=== PATIENT | male | born 1950 | race Caucasian/White ===

== ENCOUNTER 2017-08-25 13:05 | Inpatient (IN) | payer MEDICARE, OTHER ==
[~2017-08-25] VITALS: Ht 170.2 cm; Wt 65.5 kg
[~2017-08-25 13:05] MED LIST: ASPI-231 PO; ATOR1TAB PO; GLARGINE INSULIN SC; HYDR-1421 PO; METF-370 PO; NOVOLIN INSULIN SC
[2017-08-25] MEDS ORDERED: SODIUM CHLORIDE 0.9% 1,000 ML IV ONE ×2 (13:40→15:39)
[2017-08-25 13:45] LABS: Basophils # (auto) 0.1 uL; Basophils % (auto) 0.4 % (0.0-2.0); Eosinophils # (auto) 0 uL; Eosinophils % (auto) 0.1 % (0.0-7.0); Hematocrit 43.2 % (41.0-53.0); Hemoglobin 14.3 g/dL (13.5-17.5); Lymphocytes # (auto) 0.6 uL; Lymphocytes % (auto) 2.4 % (10.0-50.0); Mean Corpuscular Hemoglobin 28.5 pg (28.0-32.0); Mean Corpuscular Hgb Conc. 33.1 g/dL (32.0-36.0); Mean Corpuscular Volume 85.9 fL (80.0-100.0); Monocytes % (auto) 4.3 % (0.0-12.0); Neutrophils # (auto) 22.7 uL; Neutrophils % (auto) 92.8 % (37.0-80.0); Platelet Count (auto) 307 10^3/uL (140-450); Red Blood Cells 5.03 10^6/uL (4.5-5.90); Red Cell Distribution Width 14.4 % (11.8-14.3); White Blood Cell 24.5 10^3/uL (4.4-10.8)
[2017-08-25 15:09] LABS: Potassium 4.3 mmol/L (3.5-5.1); Sodium 134 mmol/L (136-145)
[2017-08-25 15:10] LABS: Anion Gap 25 (5-15); Blood Urea Nitrogen 47 mg/dL (7-18); Carbon Dioxide 29 mmol/L (21-32); Chloride 80 mmol/L (98-107)
[2017-08-25 15:11] LABS: Alanine Aminotransferase 76 U/L (16-61); Albumin 3.9 g/dL (3.4-5.0); Alkaline Phosphatase 124 U/L (45-117); Aspartate Aminotransferase 22 U/L (15-37); BUN/Creatinine Ratio 17.7; Bilirubin, Total 1.8 mg/dL (0.2-1.0); Calcium 10.7 mg/dL (8.5-10.1); GFR African American 31 mL/min; GFR Non-African American 25 mL/min; Magnesium 2.2 mg/dL (1.6-2.6); Total Protein 7.9 g/dL (6.4-8.2)
[2017-08-25 15:17] LABS: Glucose 662 mg/dL (74-106)
[2017-08-25 15:18] LABS: Urine Bacteria NONE SEEN /hpf (None Seen); Urine Blood Negative /uL (Negative); Urine Specific Gravity 1.024 (1.001-1.035); Urine WBC <1 /hpf (0 - 3)
[2017-08-25] MEDS ORDERED: InsuLIN REG 1unit/0.01ml Soln (100units/ml) IV ONE (15:45)
[2017-08-25] MEDS ORDERED: cefTRIAXone 1GM/10ml IVPUSH 10 ML IV ONE ×2 (15:45→16:30)
[2017-08-25] MEDS ORDERED: HYDROcodone-ACET 5/325MG TAB PO ONE (16:00)
[2017-08-25] MEDS ORDERED: DEXTROSE (50%) 50ML SYRG IV PRN (16:30)
[2017-08-25] MEDS ORDERED: MORPHINE SULFATE 4 MG/ML SYR/VIAL IV PRN (16:30)
[2017-08-25] MEDS ORDERED: NITROGLYCERIN 0.4 MG SL TAB SL PRN (16:30)
[2017-08-25] MEDS ORDERED: ENOXAPARIN SOD 30 MG/0.3 ML SYRINGE SC ONE (16:30)
[2017-08-25] MEDS ORDERED: MORPHINE SULF INJ 2 MG/ML SYRINGE 1ML IV PRN (16:30)
[2017-08-25] MEDS ORDERED: PROMETHAZINE HCL 25 MG/ML 1ML IV PRN (16:30)
[2017-08-25] MEDS ORDERED: LORazepam 0.5 MG TAB PO PRN (16:30)
[2017-08-25] MEDS ORDERED: TEMAZEPAM 15 MG CAP PO PRN (16:30)
[2017-08-25 16:49] LABS: Lactic Acid w/Reflex 2.5 mmol/L (0.4-2.0)
[2017-08-25] MEDS: SODIUM CHLORIDE 0.9% 1,000 ML IV SCH ×2 (17:01→23:18)
[2017-08-25] MEDS: metroNIDAZOLE 500MG/100ML 100 ML IV SCH ×2 (17:47→23:51)
[2017-08-25] MEDS: INSULIN DETEMIR(LEVEMIR) 1unit/0.01ml Soln (100units/ml) SC SCH (17:49)
[2017-08-25] MEDS: InsuLIN REG 1unit/0.01ml Soln (100units/ml) SC SCH ×2 (20:27→23:58)
[2017-08-25] MEDS: ACCU-CHEK COMFORT CURVE STRIP VI SCH ×2 (20:28→23:57)
[2017-08-25 22:45] VITALS: BP 109/64
[2017-08-25 23:19] VITALS: BP 109/64
[2017-08-26] VITALS (7 sets, daily range): BP systolic 124–148; BP diastolic 56–78
[2017-08-26] MEDS ORDERED: ZOLP10TA PO (03:21)
[2017-08-26] MEDS: InsuLIN REG 1unit/0.01ml Soln (100units/ml) SC SCH ×5 (04:00→19:59)
[2017-08-26] MEDS: ACCU-CHEK COMFORT CURVE STRIP VI SCH ×5 (04:19→19:59)
[2017-08-26] MEDS: metroNIDAZOLE 500MG/100ML 100 ML IV SCH ×3 (05:58→18:35)
[2017-08-26] MEDS: SODIUM CHLORIDE 0.9% 1,000 ML IV SCH ×3 (05:58→22:34)
[2017-08-26 06:27] LABS: Basophils # (auto) 0 uL; Eosinophils # (auto) 0 uL; Eosinophils % (auto) 0.1 % (0.0-7.0); Hemoglobin 11.6 g/dL (13.5-17.5); Lymphocytes # (auto) 1.1 uL; Lymphocytes % (auto) 4.6 % (10.0-50.0); Mean Corpuscular Hemoglobin 28.9 pg (28.0-32.0); Mean Corpuscular Hgb Conc. 34.1 g/dL (32.0-36.0); Mean Corpuscular Volume 84.7 fL (80.0-100.0); Monocytes # (auto) 1.7 uL; Monocytes % (auto) 7.2 % (0.0-12.0); Neutrophils # (auto) 20.8 uL; Neutrophils % (auto) 88.1 % (37.0-80.0); Platelet Count (auto) 220 10^3/uL (140-450); Red Blood Cells 4.01 10^6/uL (4.5-5.90); White Blood Cell 23.7 10^3/uL (4.4-10.8)
[2017-08-26 06:52] LABS: Albumin 2.9 g/dL (3.4-5.0); BUN/Creatinine Ratio 21.4; Bilirubin, Total 0.9 mg/dL (0.2-1.0); Calcium 8.4 mg/dL (8.5-10.1); Potassium 3.1 mmol/L (3.5-5.1); Total Protein 5.8 g/dL (6.4-8.2)
[2017-08-26] MEDS: cefTRIAXone 1GM/10ml IVPUSH 10 ML IV SCH (08:45)
[2017-08-26] MEDS: MORPHINE SULF INJ 2 MG/ML SYRINGE 1ML IV PRN (11:37)
[2017-08-26] MEDS: ASPirin-EC 81 mg tab PO SCH (11:44)
[2017-08-26] MEDS: ENOXAPARIN SOD 30 MG/0.3 ML SYRINGE SC SCH (11:44)
[2017-08-26] MEDS: PANTOPRAZOLE 40 MG TAB PO SCH (11:44)
[2017-08-26] MEDS: POTASSIUM CHL 20MEQ/50ML 50 ML IV SCH ×2 (12:23→13:06)
[2017-08-26] MEDS: INSULIN DETEMIR(LEVEMIR) 1unit/0.01ml Soln (100units/ml) SC SCH (18:00)
[2017-08-27] MEDS: metroNIDAZOLE 500MG/100ML 100 ML IV SCH ×2 (00:14→05:55)
[2017-08-27] MEDS: ACCU-CHEK COMFORT CURVE STRIP VI SCH ×3 (00:18→08:00)
[2017-08-27] MEDS: InsuLIN REG 1unit/0.01ml Soln (100units/ml) SC SCH ×3 (04:00→08:00)
[2017-08-27 04:22] LABS: Urine WBC None Seen /hpf (0 - 3)
[2017-08-27 04:42] LABS: Sodium Urine 176 mmol/L (40-220)
[2017-08-27 04:53] LABS: Urine Amorphous Crystal FEW /hpf (None Seen); Urine Bacteria NONE SEEN /hpf (None Seen); Urine Blood Negative /uL (Negative); Urine Mucus FEW (None Seen); Urine Specific Gravity 1.019 (1.001-1.035)
[2017-08-27 04:54] LABS: Creatinine, Urine 104 mg/dL (30.0-125.0)
[2017-08-27 05:38] LABS: Basophils # (auto) 0 uL; Basophils % (auto) 0.3 % (0.0-2.0); Eosinophils # (auto) 0.1 uL; Hematocrit 34.6 % (41.0-53.0); Hemoglobin 11.6 g/dL (13.5-17.5); Lymphocytes % (auto) 7.1 % (10.0-50.0); Mean Corpuscular Hemoglobin 28.7 pg (28.0-32.0); Mean Corpuscular Hgb Conc. 33.5 g/dL (32.0-36.0); Mean Corpuscular Volume 85.6 fL (80.0-100.0); Monocytes # (auto) 1.2 uL; Monocytes % (auto) 8.6 % (0.0-12.0); Neutrophils # (auto) 11.5 uL; Platelet Count (auto) 178 10^3/uL (140-450); Red Blood Cells 4.04 10^6/uL (4.5-5.90); Red Cell Distribution Width 14.3 % (11.8-14.3); White Blood Cell 13.8 10^3/uL (4.4-10.8)
[2017-08-27 05:40] VITALS: BP 130/65
[2017-08-27 06:21] LABS: BUN/Creatinine Ratio 18.3; Calcium 7.3 mg/dL (8.5-10.1); Phosphorus 1.1 mg/dL (2.5-4.90); Potassium 3.4 mmol/L (3.5-5.1); Uric Acid 4.4 mg/dL (3.5-7.2)
[2017-08-27] MEDS: MORPHINE SULF INJ 2 MG/ML SYRINGE 1ML IV PRN (07:51)
[2017-08-27 08:00] VITALS: BP 136/72
[2017-08-27 09:04] VITALS: BP 159/79
[2017-08-27] MEDS: cefTRIAXone 1GM/10ml IVPUSH 10 ML IV SCH (10:28)
[2017-08-27] MEDS: ENOXAPARIN SOD 30 MG/0.3 ML SYRINGE SC SCH (10:28)
[2017-08-27] MEDS: ASPirin-EC 81 mg tab PO SCH (10:28)
[2017-08-27] MEDS: SODIUM CHLORIDE 0.9% 1,000 ML IV SCH (10:28)
[2017-08-27] MEDS: PANTOPRAZOLE 40 MG TAB PO SCH (10:28)
[2017-08-27 13:00] VITALS: BP 177/93
[2017-08-27 14:57] VITALS: BP 159/79
== END 2017-08-27 15:45 | disposition home or self-care (01) | DRG 682 ==
LOC: ER 13:05 → EDBD 13:05 → TELE 13:06 → TELE-WESTW 22:25 → WEST WING 08-27 08:46
PROVIDERS: ADMIT Internal Medicine; ATTEND Internal Medicine
DX: N17.0 Acute kidney failure with tubular necrosis (principal); E11.00 Type 2 diabetes mellitus with hyperosmolarity without nonketotic hyperglycemic-hyperosmolar coma (NKHHC); G92 Toxic encephalopathy; E87.0 Hyperosmolality and hypernatremia; E11.42 Type 2 diabetes mellitus with diabetic polyneuropathy; E11.21 Type 2 diabetes mellitus with diabetic nephropathy; E11.65 Type 2 diabetes mellitus with hyperglycemia; I10 Essential (primary) hypertension; D72.828 Other elevated white blood cell count; E78.5 Hyperlipidemia, unspecified; E86.0 Dehydration; F41.9 Anxiety disorder, unspecified; F32.9 Major depressive disorder, single episode, unspecified; M54.9 Dorsalgia, unspecified; I25.9 Chronic ischemic heart disease, unspecified; G47.00 Insomnia, unspecified; K80.20 Calculus of gallbladder without cholecystitis without obstruction; G89.29 Other chronic pain; Z79.4 Long term (current) use of insulin; Z79.82 Long term (current) use of aspirin
CPT/HCPCS: 36415; 71045; 74176; 76775; 80048; 80053; 80061; 81001; 82150; 82570; 82962; 83036; 83605; 83690; 83735; 84100; 84300; 84443; 84484; 84550; 85025; 85652; 87040; 87086; 93005; 94761; 96361; 96372; 96374; 96375; J1815; J3490

== ENCOUNTER 2020-03-05 10:23 | Inpatient (IN) | payer MEDICARE, OTHER ==
[~2020-03-05] VITALS: Ht 167.6 cm; Wt 72.4 kg
[~2020-03-05 10:23] MED LIST changes: +ZOLP10TA PO
[2020-03-05 11:13] LABS: Basophils # (auto) 0.1 10 ^3/uL (0-0.2); Basophils % (auto) 0.7 % (0.0-2.0); Eosinophils # (auto) 0.2 10 ^3/uL (0-0.8)
[2020-03-05 11:15] LABS: Eosinophils % (auto) 2.2 % (0.0-7.0); Hematocrit 28.4 % (41.0-53.0); Mean Corpuscular Hemoglobin 25.3 pg (28.0-32.0); Mean Corpuscular Hgb Conc. 31.9 g/dL (32.0-36.0); Mean Corpuscular Volume 79.4 fL (80.0-100.0); Monocytes # (auto) 0.7 10 ^3/uL (0-1.3); Monocytes % (auto) 6.2 % (0.0-12.0); Neutrophils % (auto) 81.9 % (37.0-80.0); Platelet Count (auto) 415 10^3/uL (140-450); Red Blood Cells 3.58 10^6/uL (4.5-5.90); Red Cell Distribution Width 15.6 % (11.8-14.3)
[2020-03-05 11:41] LABS: Albumin 2.3 g/dL (3.4-5.0); Anion Gap 8 (5-15); Blood Urea Nitrogen 19 mg/dL (7-18); Calcium 8.6 mg/dL (8.5-10.1); Carbon Dioxide 24 mmol/L (21-32); Chloride 107 mmol/L (98-107); Glucose 229 mg/dL (74-106); Potassium 4.3 mmol/L (3.5-5.1); Sodium 139 mmol/L (136-145)
[2020-03-05] MEDS ORDERED: SODIUM CHLORIDE 0.9% 500 ML IV ONE (11:45)
[2020-03-05 11:46] LABS: Alanine Aminotransferase 16 U/L (16-61); Alkaline Phosphatase 162 U/L (45-117); Aspartate Aminotransferase 13 U/L (15-37); BUN/Creatinine Ratio 11.4; Bilirubin, Total 0.3 mg/dL (0.2-1.0); GFR African American 53 mL/min; GFR Non-African American 44 mL/min; Total Protein 7.5 g/dL (6.4-8.2)
[2020-03-05] MEDS ORDERED: KETOROLAC TROMETH 30 MG/ML 1ML VIAL IV ONE (14:15)
[2020-03-05] MEDS ORDERED: NITROGLYCERIN 0.4 MG SL TAB SL PRN (14:30)
[2020-03-05] MEDS ORDERED: MORPHINE SULF INJ 2 MG/ML SYRINGE 1ML IV PRN (14:30)
[2020-03-05] MEDS ORDERED: DEXTROSE (50%) 50ML SYRG IV PRN ×2 (14:45→16:45)
[2020-03-05] MEDS ORDERED: TEMAZEPAM 15 MG CAP PO PRN (14:45)
[2020-03-05] MEDS ORDERED: LACTULOSE 20Gm/30ML SOLN PO PRN ×2 (14:45→16:45)
[2020-03-05] MEDS ORDERED: ACETAMINOPHEN 500 MG TAB PO PRN (14:45)
[2020-03-05] MEDS ORDERED: LEVO100T8 PO (15:15)
[2020-03-05] MEDS ORDERED: OMEP-434 PO (15:21)
[2020-03-05] MEDS ORDERED: LISI40TA PO (15:28)
[2020-03-05] MEDS ORDERED: ALFU10TA10 PO (15:28)
[2020-03-05] MEDS ORDERED: INSLANTI SC (16:03)
[2020-03-05] MEDS ORDERED: INSU100I49 SC (16:03)
[2020-03-05 16:07] LABS: CRP High Sensitivity 5.75 mg/dL (< 0.3); Creatine Kinase IFCC 134 U/L (39-308)
[2020-03-05] MEDS ORDERED: InsuLIN REG 1unit/0.01ml Soln (100units/ml) SC SCH (17:00)
[2020-03-05] MEDS: ACCU-CHEK COMFORT CURVE STRIP VI SCH ×2 (17:00→22:00)
[2020-03-05] MEDS ORDERED: levoFLOXacin 500MG 100 ML IV ONE (17:00)
[2020-03-05] MEDS ORDERED: ACCU-CHEK COMFORT CURVE STRIP VI SCH (17:00)
[2020-03-05] MEDS: InsuLIN REG 1unit/0.01ml Soln (100units/ml) SC SCH ×2 (17:00→23:52)
[2020-03-05] MEDS: SODIUM CHLORIDE 0.9% 1,000 ML IV SCH (18:25)
[2020-03-05] MEDS ORDERED: LORazepam 2MG/ML-1ML VIAL IV PRN (20:30)
[2020-03-05] MEDS ORDERED: ATORVASTATIN 20 MG TAB PO SCH (22:00)
--- NOTE | 2020-03-05 22:00 | NUR ---
Telemetry admit from ER ROYADALJIT BENITEZ admitted to Telemetry unit after SBAR received. Patient oriented to Shy De Leon RN primary RN, unit, room, bed, and unit policies regarding patient care and visiting hours. Patient now on continuous telemetry monitoring, tele box # 35 and telemetry reading on arrival to unit is SR. Patient weighed by bedscale and encouraged to call if they need something. Instructed on POC, all questions and concerns addressed, patient verbalized understanding, will continue to monitor Note: []
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
[2020-03-05] MEDS: ATORVASTATIN 20 MG TAB PO SCH (23:31)
[2020-03-05] MEDS: CLINDAMYCIN 600MG IV 50 ML IV SCH (23:34)
[2020-03-05] MEDS: LABETALOL HCL 5 MG/ML ML 20ML VIAL IV PRN (23:41)
[2020-03-05] MEDS: HYDROcodone-ACET 5/325MG TAB PO PRN (23:42)
[2020-03-06] VITALS (7 sets, daily range): BP systolic 143–183; BP diastolic 73–97
[2020-03-06] MEDS: SODIUM CHLORIDE 0.9% 1,000 ML IV SCH ×2 (03:46→15:31)
[2020-03-06] MEDS: CLINDAMYCIN 600MG IV 50 ML IV SCH ×3 (06:25→21:22)
[2020-03-06] MEDS: ACCU-CHEK COMFORT CURVE STRIP VI SCH ×4 (06:25→21:28)
[2020-03-06] MEDS: InsuLIN REG 1unit/0.01ml Soln (100units/ml) SC SCH ×4 (06:26→21:28)
[2020-03-06 07:07] LABS: Urine WBC None Seen /hpf (0 - 3)
[2020-03-06 07:18] LABS: Basophils # (auto) 0 10 ^3/uL (0-0.2); Basophils % (auto) 0.5 % (0.0-2.0); Eosinophils # (auto) 0.3 10 ^3/uL (0-0.8); Eosinophils % (auto) 2.9 % (0.0-7.0); Hematocrit 26.5 % (41.0-53.0); Hemoglobin 8.6 g/dL (13.5-17.5); Lymphocytes # (auto) 1.3 10 ^3/uL (0.4-5.4); Lymphocytes % (auto) 13.1 % (10.0-50.0); Mean Corpuscular Hemoglobin 25.4 pg (28.0-32.0); Mean Corpuscular Hgb Conc. 32.3 g/dL (32.0-36.0); Mean Corpuscular Volume 78.7 fL (80.0-100.0); Monocytes # (auto) 0.6 10 ^3/uL (0-1.3); Monocytes % (auto) 5.8 % (0.0-12.0); Neutrophils # (auto) 7.7 10 ^3/uL (1.6-8.6); Neutrophils % (auto) 77.7 % (37.0-80.0); Platelet Count (auto) 425 10^3/uL (140-450); Red Blood Cells 3.37 10^6/uL (4.5-5.90); Red Cell Distribution Width 15.4 % (11.8-14.3); White Blood Cell 9.9 10^3/uL (4.4-10.8)
--- NOTE | 2020-03-06 07:30 | NUR ---
Opening Shift Note Assumed care of patient, awake and alert. No S/S of distress/SOB or pain. Instructed on POC and to call for assist PRN, will continue to monitor for changes Q1hr and PRN. Fall precautions in place per safety protocol.
[2020-03-06 07:35] LABS: Albumin 2.2 g/dL (3.4-5.0); BUN/Creatinine Ratio 15.2; Calcium 8.4 mg/dL (8.5-10.1)
[2020-03-06 07:37] LABS: Bilirubin, Total 0.3 mg/dL (0.2-1.0); Total Protein 7.2 g/dL (6.4-8.2)
[2020-03-06 07:55] LABS: Amphetamine Screen, Urine NEGATIVE (NEGATIVE); Barbiturate Scree,Urine NEGATIVE (NEGATIVE); Benzodiazephine Screen, Urine NEGATIVE (NEGATIVE); Cannabinoid Screen, Urine NEGATIVE (NEGATIVE); Cocaine Screen, Urine NEGATIVE (NEGATIVE); Opiate Scree,Urine NEGATIVE (NEGATIVE); Phencyclidine Screen, Urine NEGATIVE (NEGATIVE)
[2020-03-06 08:40] LABS: Urine Bacteria FEW /hpf (None Seen); Urine Blood Negative /uL (Negative); Urine Hyaline Cast FEW /lpf (0 - 2); Urine Specific Gravity 1.017 (1.001-1.035)
[2020-03-06] MEDS: levoFLOXacin 500MG 100 ML IV SCH (09:37)
[2020-03-06] MEDS: ASPirin 81 mg TAB PO SCH (09:37)
[2020-03-06] MEDS: PANTOPRAZOLE 40 MG TAB PO SCH (09:37)
[2020-03-06] MEDS: ENOXAPARIN SOD 40 MG/0.4 ML SYRINGE SC SCH (09:37)
[2020-03-06] MEDS: PROMETHAZINE HCL 25 MG/ML 1ML IV PRN ×2 (09:56→20:41)
[2020-03-06] MEDS: MORPHINE SULF INJ 2 MG/ML SYRINGE 1ML IV PRN ×2 (09:56→20:42)
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
--- NOTE | 2020-03-06 10:48 | NUR ---
Podiatry MD Fanous at bedside, aware of patient status. New orders for PICC line received, will obtain consents and cont to monitor patient.
[2020-03-06 13:36] LABS: INR 1.16 (0.9-1.15)
--- NOTE | 2020-03-06 14:00 | NUR ---
EEG COMPLETED AT BEDSIDE.
[2020-03-06] MEDS ORDERED: LIDOCAINE 1% (LOCAL ANESTH.) PF 5ml SDV ID ONE (16:15)
--- NOTE | 2020-03-06 16:16 | NUR ---
PICC line placement Patient educated on need for PICC line placement. All risks and benefits explained and all questions and concerns addressed prior to procedure. Noted past medical history and allergies with no contraindications. INR and Plt counts within acceptable range. 4 fr PICC line inserted via right basilic vein using [employer] US and Tip Location System. Sterile technique with maximum barrier precautions utilized. Blood return obtained from each of the 2 lumens and each flushed easily with NS using proper technique. PICC secured with Stat-lock; biodisc and occlusive dressing applied. Stat portable chest x-ray obtained for PICC tip placement. *Baseline Arm Circumference 30 cm. Internal length 39 cm. External length 0 cm. PICC lot #[id number]
[2020-03-06] MEDS: HYDROcodone-ACET 5/325MG TAB PO PRN (16:45)
--- NOTE | 2020-03-06 17:10 | NUR ---
Okay to use PICC line Xray completed. Okay to use PICC line. Bianka KAUR notified.
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
--- NOTE | 2020-03-06 19:15 | NUR ---
Opening Shift Note Received report from Bianka KAUR. Assumed care of patient, awake and alert. No S/S of distress/SOB or pain. Instructed on POC and to call for assist PRN, will continue to monitor for changes Q1hr and PRN.
--- NOTE | 2020-03-06 20:55 | NUR ---
pt. reports has no history of falls can ambulate with out the walker refused fall risk band. pt. states he has no allergies and he has no allergy to codeine refused allergy band. Signed: 03/06/20 at 2056 by KARMEN SOW <Co-Signature Required> Co-Signed: 03/06/202056 by Rosette Hernandez RN
[2020-03-06] MEDS: SODIUM CHLOR 0.9% PF (SALINE LOCK) 10ML VIAL/SYR IV SCH (21:20)
[2020-03-06] MEDS: ATORVASTATIN 20 MG TAB PO SCH (21:20)
[2020-03-06] MEDS: LABETALOL HCL 5 MG/ML ML 20ML VIAL IV PRN (21:27)
--- NOTE | 2020-03-06 21:40 | NUR ---
BS 274 administered ordered insulin per sliding scale. Signed: 03/06/20 at 2237 by KARMEN SOW SN <Co-Signature Required> Co-Signed: 03/06/20 at 2237 by Rosette Hernandez RN
--- NOTE | 2020-03-06 23:55 | NUR ---
Patient advised NPO after midnight for Cardiolite tomorrow.
[2020-03-07] MEDS: HYDROcodone-ACET 5/325MG TAB PO PRN ×2 (01:56→15:02)
[2020-03-07] MEDS: SODIUM CHLORIDE 0.9% 1,000 ML IV SCH ×2 (04:04→16:31)
[2020-03-07 05:16] VITALS: BP 159/100
[2020-03-07] MEDS: CLINDAMYCIN 600MG IV 50 ML IV SCH ×3 (06:24→21:49)
[2020-03-07] MEDS: MORPHINE SULF INJ 2 MG/ML SYRINGE 1ML IV PRN ×2 (06:25→21:50)
[2020-03-07] MEDS: PROMETHAZINE HCL 25 MG/ML 1ML IV PRN ×2 (06:25→12:38)
[2020-03-07] MEDS: ACCU-CHEK COMFORT CURVE STRIP VI SCH ×4 (06:25→22:03)
[2020-03-07] MEDS: InsuLIN REG 1unit/0.01ml Soln (100units/ml) SC SCH ×4 (06:26→22:05)
[2020-03-07] MEDS ORDERED: ADENOSINE 61 MG in GIVE UN-DILUTED 0 ML IV STA (08:21)
[2020-03-07 09:00] VITALS: BP 149/87
[2020-03-07] MEDS: SODIUM CHLOR 0.9% PF (SALINE LOCK) 10ML VIAL/SYR IV SCH ×2 (10:00→21:49)
--- NOTE | 2020-03-07 10:29 | NUR ---
Podiatry MD Lynch at bedside, aware of patient status. Per MD Lynch, there is no need for surgery at this time. However, he will input orders for home IV ABX . Will cont to monitor patient.
[2020-03-07] MEDS: PANTOPRAZOLE 40 MG TAB PO SCH (10:44)
[2020-03-07] MEDS: levoFLOXacin 500MG 100 ML IV SCH (10:44)
[2020-03-07] MEDS: ENOXAPARIN SOD 40 MG/0.4 ML SYRINGE SC SCH (10:44)
[2020-03-07] MEDS: ASPirin 81 mg TAB PO SCH (10:44)
--- NOTE | 2020-03-07 11:30 | NUR ---
Digital Media Associate Demetrice Vieira at bedside, aware of patient status. Per Trina, obtain orthostatic vitals at this time. Will carry out new orders and cont to monitor patient.
--- NOTE | 2020-03-07 11:42 | NUR ---
Orthostatic vitals Lying BP190/87 (127) HR82 Sitting BP139/76 (98) HR85 Standing BP122/71 (90) HR89
[2020-03-07 13:09] VITALS: BP 139/76
--- NOTE | 2020-03-07 14:00 | NUR ---
Wound care Performed wound care to the right foot. Patient Tolerated well. Administered available [place]. Will cont to monitor patient.
--- NOTE | 2020-03-07 14:05 | NUR ---
Nutrition Assessment Notes Please refer to link for full assessment notes. Est Energy needs: 3746-5387 kcals (30-35 kcal/kgBW) d/t pt with P/U Est Protein needs: 88-110 gms/day (1.2-1.5 gm/kgBW) d/t pt with P/U Will continue to monitor and reassess prn. Addendum: 03/07/20 at [address] Amended: Links added.
[2020-03-07 17:00] VITALS: BP 157/83
[2020-03-07] MEDS ORDERED: LORazepam 2MG/ML-1ML VIAL IV PRN (21:45)
[2020-03-07] MEDS: ATORVASTATIN 20 MG TAB PO SCH (21:50)
[2020-03-07] MEDS: levETIRAcetam 500 MG TAB PO SCH (21:57)
[2020-03-07 22:14] VITALS: BP 146/80
[2020-03-08 05:00] VITALS: BP 171/65
[2020-03-08] MEDS: SODIUM CHLORIDE 0.9% 1,000 ML IV SCH (05:55)
[2020-03-08] MEDS: CLINDAMYCIN 600MG IV 50 ML IV SCH (05:56)
[2020-03-08] MEDS: LABETALOL HCL 5 MG/ML ML 20ML VIAL IV PRN (05:57)
[2020-03-08] MEDS: InsuLIN REG 1unit/0.01ml Soln (100units/ml) SC SCH (06:36)
[2020-03-08] MEDS: ACCU-CHEK COMFORT CURVE STRIP VI SCH (06:36)
[2020-03-08 08:00] VITALS: BP 143/75
--- NOTE | 2020-03-08 08:00 | NUR ---
Opening Shift Note Assumed care of patient, awake and alert. No S/S of distress/SOB or pain. Instructed on POC and to call for assist PRN. Bed at lowest locked position and call light within reach. Will continue to monitor for changes Q1hr and PRN.
--- NOTE | 2020-03-08 08:40 | NUR ---
Dr. Quinton Haddad at bedside.
[2020-03-08 08:58] VITALS: BP 143/75
[2020-03-08] MEDS: SODIUM CHLOR 0.9% PF (SALINE LOCK) 10ML VIAL/SYR IV SCH (10:00)
[2020-03-08] MEDS: ASPirin 81 mg TAB PO SCH (10:00)
[2020-03-08] MEDS: ENOXAPARIN SOD 40 MG/0.4 ML SYRINGE SC SCH (11:09)
[2020-03-08] MEDS: PANTOPRAZOLE 40 MG TAB PO SCH (11:10)
[2020-03-08] MEDS: levETIRAcetam 500 MG TAB PO SCH (11:10)
[2020-03-08] MEDS: levoFLOXacin 500MG 100 ML IV SCH (11:10)
[2020-03-08 11:28] VITALS: BP 143/75
[2020-03-08 12:37] VITALS: BP 173/82
--- NOTE | 2020-03-08 12:55 | NUR ---
Blood Pressure re-assessment BP 118/70, HR 88. No s/s of distress/noted stated.
--- NOTE | 2020-03-08 13:00 | NUR ---
WOUND CARE/ WOUND PICTURES Patient refused wound care and pictures to be taken. Patient stated " I know how to do it myself and i have everything at home".
--- NOTE | 2020-03-08 13:30 | NUR ---
Discharge instructions given as ordered. Encourage to follow up with PMD as instructed. All questions and concerns addressed. Patient verbalized understanding. Medication reconciliation form completed and copy given to patient. IV removed with catheter intact, pressure dressing applied. Telemetry unit returned to ICU. Patient taken to vehicle via wheelchair with all personal belongings, accompanied by this nurse. No distress noted at time of departure.
== END 2020-03-08 13:40 | disposition home or self-care (01) | DRG 69 ==
LOC: ER 10:23 → EDBD 10:23 → TELE 10:24 → TELE-CENTR 21:24
PROVIDERS: ADMIT Internal Medicine; ATTEND Family Medicine
PROC: 02HV33Z Insertion of Infusion Device into Superior Vena Cava, Percutaneous Approach (ICD-10-PCS; principal; 2020-03-06)
DX: G45.9 Transient cerebral ischemic attack, unspecified (principal); N17.9 Acute kidney failure, unspecified; R55 Syncope and collapse; G40.409 Other generalized epilepsy and epileptic syndromes, not intractable, without status epilepticus; E03.9 Hypothyroidism, unspecified; D64.9 Anemia, unspecified; E11.42 Type 2 diabetes mellitus with diabetic polyneuropathy; E11.65 Type 2 diabetes mellitus with hyperglycemia; E78.5 Hyperlipidemia, unspecified; F17.210 Nicotine dependence, cigarettes, uncomplicated; F41.9 Anxiety disorder, unspecified; G89.29 Other chronic pain; I10 Essential (primary) hypertension; I48.91 Unspecified atrial fibrillation; N40.0 Benign prostatic hyperplasia without lower urinary tract symptoms; M54.9 Dorsalgia, unspecified; G40.A09 Absence epileptic syndrome, not intractable, without status epilepticus; S00.81XA Abrasion of other part of head, initial encounter; X58.XXXA Exposure to other specified factors, initial encounter; Z79.4 Long term (current) use of insulin; Z79.82 Long term (current) use of aspirin; Z79.891 Long term (current) use of opiate analgesic; Z79.899 Other long term (current) drug therapy; Z89.411 Acquired absence of right great toe; Z83.3 Family history of diabetes mellitus; Z89.429 Acquired absence of other toe(s), unspecified side; Y93.89 Activity, other specified; Y92.89 Other specified places as the place of occurrence of the external cause; Y99.8 Other external cause status
CPT/HCPCS: 36415; 36569; 36600; 70450; 70551; 71045; 71275; 73630; 78315; 78452; 80053; 80307; 81001; 82550; 82805; 82962; 83036; 83735; 84443; 84484; 85025; 85379; 85610; 85652; 86141; 87077; 87081; 87186; 87205; 93005; 93017; 93306; 93886; 93970; 95819; 96361; 96365; 96372; 96375; G0378; J0153; J1815; J1885; J1956; J3490

== ENCOUNTER 2020-10-20 06:04 | Inpatient (IN) | payer OTHER, MEDICARE ==
[~2020-10-20] VITALS: Ht 170.2 cm; Wt 64.5 kg
[~2020-10-20 06:04] MED LIST changes: +ALFU10TA10 PO; -ASPI-231 PO; +ASPI1TAB20 PO; +ATOR-47 PO; -ATOR1TAB PO; -GLARGINE INSULIN SC; +INSLANTI SC; +INSU100I49 SC; +LEVO100T8 PO; +LISI40TA11 PO; -METF-370 PO; -NOVOLIN INSULIN SC; +OMEP-434 PO
[2020-10-20] MEDS ORDERED: InsuLIN REG 1unit/0.01ml Soln (100units/ml) IV ONE (07:00)
[2020-10-20] MEDS ORDERED: SODIUM CHLORIDE 0.9% 500 ML IV ONE ×2 (07:00→07:30)
[2020-10-20 07:09] LABS: Hematocrit 36.5 % (41.0-53.0); Mean Corpuscular Hemoglobin 27.2 pg (28.0-32.0); Mean Corpuscular Hgb Conc. 32.9 g/dL (32.0-36.0); Mean Corpuscular Volume 82.7 fL (80.0-100.0); Red Blood Cells 4.41 10^6/uL (4.5-5.90); Red Cell Distribution Width 14.7 % (11.8-14.3); White Blood Cell 29.6 10^3/uL (4.4-10.8)
[2020-10-20 07:15] LABS: Basophils % (manual) 0 (0.0-2.0); Blast Cells 0; Eosinophils % (manual) 0 (0-7); Metamyelocytes % 0; Promyelocytes % 0; Reactive Lymphocytes 0
[2020-10-20 07:19] LABS: Albumin 3.2 g/dL (3.4-5.0); BUN/Creatinine Ratio 16.9; Calcium 8.7 mg/dL (8.5-10.1); Potassium 3.8 mmol/L (3.5-5.1)
[2020-10-20 07:21] LABS: Bilirubin, Total 1.2 mg/dL (0.2-1.0); Total Protein 7.7 g/dL (6.4-8.2)
[2020-10-20] MEDS ORDERED: ONDANSETRON HCL 4 MG/2 ML VIAL ONE (07:38)
[2020-10-20] MEDS ORDERED: ONDANSETRON HCL 4 MG/2 ML VIAL IV ONE (07:45)
[2020-10-20] MEDS ORDERED: MORPHINE SULFATE 4 MG/ML SYR/VIAL IV ONE (08:00)
[2020-10-20 08:06] LABS: Band Neutrophils % (manual) 1; Lymphocytes % (manual) 6 (10.0-50.0); Monocytes % (manual) 3 (0-12); Myelocytes % 1
[2020-10-20 08:17] LABS: Urine Bacteria NONE SEEN /hpf (None Seen); Urine Blood TRACE /uL (Negative); Urine Hyaline Cast MANY /lpf (0 - 2); Urine Mucus FEW (None Seen); Urine Specific Gravity 1.018 (1.001-1.035); Urine WBC 2 /hpf (0 - 3)
[2020-10-20 08:48] LABS: INR 1.14 (0.9-1.15); Partial Thromboplastin Time 25.7 sec (23.0-31.2)
[2020-10-20] MEDS ORDERED: PIPERACILLIN-TAZOB 3.375GM 100 ML IV ONE (09:00)
[2020-10-20] MEDS ORDERED: VANCOMYCIN 1GM/250ML 250 ML IV ONE (09:00)
[2020-10-20] MEDS ORDERED: MORPHINE SULFATE INJECTION 2 MG/ML SYRG IV PRN (11:15)
[2020-10-20] MEDS ORDERED: DEXTROSE (50%) 50ML SYRG IV PRN (11:15)
[2020-10-20] MEDS ORDERED: NITROGLYCERIN 0.4 MG SL TAB SL PRN (11:15)
[2020-10-20] MEDS ORDERED: INSULIN LANTUS (GLARGINE) 1 /0.01ml (100units/ml) SC ONE (11:15)
[2020-10-20] MEDS ORDERED: ACETAMINOPHEN 500 MG TAB PO PRN (11:15)
[2020-10-20] MEDS: SOD CHL 0.45% 1,000 ML IV SCH ×2 (11:57→19:15)
[2020-10-20] MEDS: InsuLIN R (HUMAN) 100 UNITS in SODIUM CHL 0.9% 99 ML IV SCH ×2 (11:58→13:36)
[2020-10-20] MEDS: ACCU-CHEK COMFORT CURVE STRIP VI SCH ×10 (11:59→23:58)
[2020-10-20] MEDS ORDERED: metroNIDAZOLE 500MG/100ML 100 ML IV SCH (14:00)
[2020-10-20 14:04] LABS: Lactic Acid w/Reflex 2.3 mmol/L (0.4-2.0); Magnesium 1.9 mg/dL (1.6-2.6); Phosphorus 3.6 mg/dL (2.5-4.90)
[2020-10-20] MEDS: metroNIDAZOLE 500MG/100ML 100 ML IV SCH ×2 (14:34→22:19)
[2020-10-20] MEDS: FAMOTIDINE 20 MG TAB PO SCH (22:19)
[2020-10-20 23:37] LABS: BUN/Creatinine Ratio 25.8; Calcium 7.8 mg/dL (8.5-10.1); Potassium 3.1 mmol/L (3.5-5.1)
[2020-10-21] MEDS ORDERED: DEXTROSE (50%) 50ML SYRG IV PRN ×2 (01:00→11:45)
[2020-10-21 02:30] VITALS: BP 149/70
[2020-10-21] MEDS: SOD CHL 0.45% 1,000 ML IV SCH (02:45)
[2020-10-21] MEDS: HYDROcodone-ACET 5/325MG TAB PO PRN ×2 (02:56→19:55)
[2020-10-21] MEDS: InsuLIN REG 1unit/0.01ml Soln (100units/ml) SC SCH ×5 (04:00→22:09)
[2020-10-21] MEDS: ACCU-CHEK COMFORT CURVE STRIP VI SCH ×5 (04:00→21:47)
[2020-10-21 06:03] LABS: BUN/Creatinine Ratio 28.5; Calcium 7.5 mg/dL (8.5-10.1); Potassium 3.2 mmol/L (3.5-5.1)
[2020-10-21] MEDS: metroNIDAZOLE 500MG/100ML 100 ML IV SCH (06:20)
[2020-10-21 08:00] VITALS: BP 131/75
[2020-10-21] MEDS: cefTRIAXone 1GM/50ML D5W 50 ML IV SCH (08:26)
[2020-10-21] MEDS: FAMOTIDINE 20 MG TAB PO SCH (08:26)
[2020-10-21] MEDS ORDERED: INSULIN LANTUS (GLARGINE) 1 /0.01ml (100units/ml) SC SCH (10:00)
[2020-10-21] MEDS ORDERED: POTASSIUM CHL 20 Meq TABLET PO ONE (11:45)
[2020-10-21 12:00] VITALS: BP 159/86
[2020-10-21 12:15] LABS: BUN/Creatinine Ratio 28.1; Calcium 7.8 mg/dL (8.5-10.1); Potassium 3.3 mmol/L (3.5-5.1)
[2020-10-21] MEDS: SODIUM CHLORIDE 0.9% 1,000 ML IV SCH (12:16)
[2020-10-21] MEDS: ONDANSETRON HCL 4 MG/2 ML VIAL IV PRN (12:17)
[2020-10-21] MEDS ORDERED: CLOPIDOGREL BISULFATE 75 MG TAB PO ONE (14:15)
[2020-10-21] MEDS ORDERED: ASPirin 81 mg TAB PO ONE (14:15)
[2020-10-21] MEDS ORDERED: NICOTINE 14 MG/24HR TOPICAL PATCH TD ONE (14:15)
[2020-10-21 16:00] VITALS: BP 138/74
[2020-10-21] MEDS: MORPHINE SULFATE INJECTION 2 MG/ML SYRG IV PRN ×2 (17:47→21:54)
[2020-10-21] MEDS: ATORVASTATIN 20 MG TAB PO SCH (21:46)
[2020-10-21 22:00] VITALS: BP 159/88
[2020-10-22] MEDS: SODIUM CHLORIDE 0.9% 1,000 ML IV SCH ×2 (00:44→11:42)
[2020-10-22] MEDS: MORPHINE SULFATE INJECTION 2 MG/ML SYRG IV PRN (02:53)
[2020-10-22 05:00] VITALS: BP 136/67
[2020-10-22 06:04] LABS: Basophils # (auto) 0.1 10 ^3/uL (0-0.2); Basophils % (auto) 0.5 % (0.0-2.0); Eosinophils # (auto) 0.2 10 ^3/uL (0-0.8); Eosinophils % (auto) 1.5 % (0.0-7.0); Hematocrit 30.5 % (41.0-53.0); Hemoglobin 10.2 g/dL (13.5-17.5); Lymphocytes # (auto) 1.2 10 ^3/uL (0.4-5.4); Lymphocytes % (auto) 8.7 % (10.0-50.0); Mean Corpuscular Hemoglobin 27.7 pg (28.0-32.0); Mean Corpuscular Hgb Conc. 33.4 g/dL (32.0-36.0); Monocytes % (auto) 7.3 % (0.0-12.0); Red Blood Cells 3.68 10^6/uL (4.5-5.90); Red Cell Distribution Width 14.9 % (11.8-14.3); White Blood Cell 13.4 10^3/uL (4.4-10.8)
[2020-10-22] MEDS: LEVOTHYROXINE SODIUM 100 MCG TAB PO SCH (06:10)
[2020-10-22 06:12] LABS: Calcium 7.7 mg/dL (8.5-10.1); Potassium 3.3 mmol/L (3.5-5.1)
[2020-10-22] MEDS: ACCU-CHEK COMFORT CURVE STRIP VI SCH ×4 (06:14→22:00)
[2020-10-22 06:15] LABS: BUN/Creatinine Ratio 26.3
[2020-10-22] MEDS: INSULIN LANTUS (GLARGINE) 1 /0.01ml (100units/ml) SC SCH (06:21)
[2020-10-22] MEDS: InsuLIN REG 1unit/0.01ml Soln (100units/ml) SC SCH ×4 (06:31→22:00)
[2020-10-22 09:00] VITALS: BP 188/88
[2020-10-22] MEDS: cefTRIAXone 1GM/50ML D5W 50 ML IV SCH (09:35)
[2020-10-22] MEDS: CLOPIDOGREL BISULFATE 75 MG TAB PO SCH (09:36)
[2020-10-22] MEDS: ASPirin 81 mg TAB PO SCH (09:36)
[2020-10-22] MEDS: POTASSIUM CHL 20 Meq TABLET PO SCH (09:36)
[2020-10-22] MEDS: PANTOPRAZOLE 40 MG TAB PO SCH (09:36)
[2020-10-22] MEDS: FAMOTIDINE 20 MG TAB PO SCH (09:37)
[2020-10-22] MEDS: NICOTINE 14 MG/24HR TOPICAL PATCH TD SCH (09:38)
[2020-10-22] MEDS: METOPROLOL TARTRATE 25 MG TAB PO SCH ×2 (11:10→22:00)
[2020-10-22] MEDS ORDERED: POTASSIUM CHL 20 Meq TABLET PO ONE (11:30)
[2020-10-22 13:00] VITALS: BP 157/83
[2020-10-22] MEDS: hydrALAZINE HCL 20 MG/ML VL IV PRN (13:20)
[2020-10-22 16:24] VITALS: BP 143/74
[2020-10-22] MEDS: ONDANSETRON HCL 4 MG/2 ML VIAL IV PRN (17:01)
[2020-10-22] MEDS: ATORVASTATIN 20 MG TAB PO SCH (22:00)
[2020-10-23 05:00] VITALS: BP 159/80
[2020-10-23 06:02] LABS: Basophils # (auto) 0.1 10 ^3/uL (0-0.2); Basophils % (auto) 0.5 % (0.0-2.0); Eosinophils # (auto) 0.4 10 ^3/uL (0-0.8); Eosinophils % (auto) 3.3 % (0.0-7.0); Hematocrit 32.8 % (41.0-53.0); Hemoglobin 10.8 g/dL (13.5-17.5); Lymphocytes # (auto) 0.7 10 ^3/uL (0.4-5.4); Lymphocytes % (auto) 5.8 % (10.0-50.0); Mean Corpuscular Hemoglobin 27.4 pg (28.0-32.0); Mean Corpuscular Hgb Conc. 33.1 g/dL (32.0-36.0); Mean Corpuscular Volume 82.9 fL (80.0-100.0); Monocytes # (auto) 0.8 10 ^3/uL (0-1.3); Monocytes % (auto) 6.7 % (0.0-12.0); Neutrophils # (auto) 9.8 10 ^3/uL (1.6-8.6); Neutrophils % (auto) 83.7 % (37.0-80.0); Red Blood Cells 3.96 10^6/uL (4.5-5.90); Red Cell Distribution Width 14.5 % (11.8-14.3); White Blood Cell 11.7 10^3/uL (4.4-10.8)
[2020-10-23 06:06] LABS: INR 1.03 (0.9-1.15); Partial Thromboplastin Time 25.6 sec (23.0-31.2)
[2020-10-23 06:13] LABS: Potassium 4.2 mmol/L (3.5-5.1)
[2020-10-23 06:20] LABS: BUN/Creatinine Ratio 20.9; Calcium 8.2 mg/dL (8.5-10.1)
[2020-10-23] MEDS: InsuLIN REG 1unit/0.01ml Soln (100units/ml) SC SCH ×4 (06:36→22:37)
[2020-10-23] MEDS: ACCU-CHEK COMFORT CURVE STRIP VI SCH ×4 (06:37→22:35)
[2020-10-23] MEDS: INSULIN LANTUS (GLARGINE) 1 /0.01ml (100units/ml) SC SCH (06:37)
[2020-10-23] MEDS: LEVOTHYROXINE SODIUM 100 MCG TAB PO SCH (06:37)
[2020-10-23 08:34] VITALS: BP 139/80
[2020-10-23] MEDS: cefTRIAXone 1GM/50ML D5W 50 ML IV SCH (08:59)
[2020-10-23] MEDS: SODIUM CHLORIDE 0.9% 1,000 ML IV SCH (09:00)
[2020-10-23] MEDS: POTASSIUM CHL 20 Meq TABLET PO SCH (10:00)
[2020-10-23] MEDS: METOPROLOL TARTRATE 25 MG TAB PO SCH ×2 (10:00→22:35)
[2020-10-23] MEDS: PANTOPRAZOLE 40 MG TAB PO SCH (10:00)
[2020-10-23] MEDS: CLOPIDOGREL BISULFATE 75 MG TAB PO SCH (10:00)
[2020-10-23] MEDS: ASPirin 81 mg TAB PO SCH (10:00)
[2020-10-23] MEDS ORDERED: MEPERIDINE HCL (25 MG/ML) 1ML VIAL ONE (11:26)
[2020-10-23] MEDS ORDERED: fentaNYL CITRATE 100 MCG/2 ML VL ONE (11:27)
[2020-10-23] MEDS ORDERED: MIDAZOLAM HCL 2MG/2ML 2ml VIAL (1mg/ml) ONE (11:27)
[2020-10-23] MEDS ORDERED: PROPOFOL 10 MG/ML 20 ML IV ONE (11:50)
[2020-10-23] MEDS ORDERED: DexAMETHasone SOD PHOS 10MG/1ML VIAL INJ ONE (11:50)
[2020-10-23] MEDS: NICOTINE 14 MG/24HR TOPICAL PATCH TD SCH (13:31)
[2020-10-23] MEDS: hydrALAZINE HCL 20 MG/ML VL IV PRN (13:44)
[2020-10-23 16:26] VITALS: BP 144/80
[2020-10-23] MEDS: ATORVASTATIN 20 MG TAB PO SCH (22:34)
[2020-10-23] MEDS: HYDROcodone-ACET 5/325MG TAB PO PRN (22:36)
[2020-10-24] MEDS: hydrALAZINE HCL 20 MG/ML VL IV PRN
[2020-10-24 05:00] VITALS: BP 134/69
[2020-10-24 05:59] LABS: Basophils # (auto) 0 10 ^3/uL (0-0.2); Basophils % (auto) 0.2 % (0.0-2.0); Eosinophils # (auto) 0.1 10 ^3/uL (0-0.8); Eosinophils % (auto) 0.8 % (0.0-7.0); Hematocrit 31.4 % (41.0-53.0); Hemoglobin 10.5 g/dL (13.5-17.5); Lymphocytes % (auto) 7.8 % (10.0-50.0); Mean Corpuscular Hemoglobin 27.4 pg (28.0-32.0); Mean Corpuscular Hgb Conc. 33.4 g/dL (32.0-36.0); Monocytes # (auto) 0.8 10 ^3/uL (0-1.3); Monocytes % (auto) 6.6 % (0.0-12.0); Neutrophils # (auto) 10.6 10 ^3/uL (1.6-8.6); Neutrophils % (auto) 84.6 % (37.0-80.0); Red Blood Cells 3.83 10^6/uL (4.5-5.90); Red Cell Distribution Width 14.6 % (11.8-14.3); White Blood Cell 12.6 10^3/uL (4.4-10.8)
[2020-10-24 06:10] LABS: BUN/Creatinine Ratio 24.7; Magnesium 1.8 mg/dL (1.6-2.6)
[2020-10-24] MEDS: LEVOTHYROXINE SODIUM 100 MCG TAB PO SCH (06:41)
[2020-10-24] MEDS: ACCU-CHEK COMFORT CURVE STRIP VI SCH ×4 (06:42→21:29)
[2020-10-24] MEDS: InsuLIN REG 1unit/0.01ml Soln (100units/ml) SC SCH ×4 (06:43→21:31)
[2020-10-24] MEDS: INSULIN LANTUS (GLARGINE) 1 /0.01ml (100units/ml) SC SCH (06:44)
[2020-10-24] MEDS: SODIUM CHLORIDE 0.9% 1,000 ML IV SCH ×2 (06:49→23:30)
[2020-10-24 08:32] VITALS: BP 153/78
[2020-10-24] MEDS: cefTRIAXone 1GM/50ML D5W 50 ML IV SCH (09:35)
[2020-10-24] MEDS: CLOPIDOGREL BISULFATE 75 MG TAB PO SCH (09:35)
[2020-10-24] MEDS: METOPROLOL TARTRATE 25 MG TAB PO SCH ×2 (09:35→21:28)
[2020-10-24] MEDS: ASPirin 81 mg TAB PO SCH (09:35)
[2020-10-24] MEDS: PANTOPRAZOLE 40 MG TAB PO SCH (09:36)
[2020-10-24] MEDS: NICOTINE 14 MG/24HR TOPICAL PATCH TD SCH (09:36)
[2020-10-24] MEDS ORDERED: MAGNESIUM SULFATE 1GM/100ML 100 ML IV ONE (12:45)
[2020-10-24 12:53] VITALS: BP 141/77
[2020-10-24 17:07] VITALS: BP 150/82
[2020-10-24] MEDS: ATORVASTATIN 20 MG TAB PO SCH (21:28)
[2020-10-24] MEDS: DAKINS HALF STR 0.25% (NaHypochlorite) 473 ML TOPICAL SOL TOP SCH (21:29)
[2020-10-24] MEDS: MORPHINE SULFATE INJECTION 2 MG/ML SYRG IV PRN (21:29)
[2020-10-24 22:00] VITALS: BP 150/112
[2020-10-25 05:00] VITALS: BP 162/90
[2020-10-25] MEDS: ACCU-CHEK COMFORT CURVE STRIP VI SCH ×3 (06:00→17:27)
[2020-10-25] MEDS: hydrALAZINE HCL 20 MG/ML VL IV PRN (06:01)
[2020-10-25] MEDS: LEVOTHYROXINE SODIUM 100 MCG TAB PO SCH (06:01)
[2020-10-25 06:04] LABS: Basophils # (auto) 0.1 10 ^3/uL (0-0.2); Basophils % (auto) 0.6 % (0.0-2.0); Eosinophils # (auto) 0.6 10 ^3/uL (0-0.8); Eosinophils % (auto) 5.7 % (0.0-7.0); Hematocrit 32.6 % (41.0-53.0); Hemoglobin 10.8 g/dL (13.5-17.5); Lymphocytes # (auto) 1.4 10 ^3/uL (0.4-5.4); Lymphocytes % (auto) 12.1 % (10.0-50.0); Mean Corpuscular Hemoglobin 27.1 pg (28.0-32.0); Mean Corpuscular Hgb Conc. 33.1 g/dL (32.0-36.0); Monocytes # (auto) 0.8 10 ^3/uL (0-1.3); Monocytes % (auto) 7.4 % (0.0-12.0); Neutrophils # (auto) 8.5 10 ^3/uL (1.6-8.6); Neutrophils % (auto) 74.2 % (37.0-80.0); Nucleated Red Blood Cells % 0.1 %; Red Blood Cells 3.98 10^6/uL (4.5-5.90); Red Cell Distribution Width 14.6 % (11.8-14.3); White Blood Cell 11.5 10^3/uL (4.4-10.8)
[2020-10-25 06:16] LABS: INR 1.05 (0.9-1.15); Partial Thromboplastin Time 23.6 sec (23.0-31.2)
[2020-10-25 06:20] LABS: Potassium 3.9 mmol/L (3.5-5.1)
[2020-10-25] MEDS: InsuLIN REG 1unit/0.01ml Soln (100units/ml) SC SCH ×3 (06:20→17:27)
[2020-10-25] MEDS: INSULIN LANTUS (GLARGINE) 1 /0.01ml (100units/ml) SC SCH (06:21)
[2020-10-25 07:48] VITALS: BP 102/56
[2020-10-25 09:00] VITALS: BP 99/54
[2020-10-25] MEDS: cefTRIAXone 1GM/50ML D5W 50 ML IV SCH (09:00)
[2020-10-25] MEDS ORDERED: LIDOCAINE 2%HCL (LOCAL ANESTH.) INJ 20ML MDV ONE (09:09)
[2020-10-25] MEDS ORDERED: fentaNYL CITRATE 100 MCG/2 ML VL ONE (09:10)
[2020-10-25] MEDS ORDERED: MIDAZOLAM HCL 2MG/2ML 2ml VIAL (1mg/ml) ONE (09:10)
[2020-10-25] MEDS ORDERED: SODIUM CHL 0.9% 50 ML ONE (09:10)
[2020-10-25] MEDS ORDERED: ANGIOMAX 250 MG VIAL IV ONE (09:10)
[2020-10-25] MEDS: METOPROLOL TARTRATE 25 MG TAB PO SCH (10:00)
[2020-10-25] MEDS: ASPirin 81 mg TAB PO SCH (10:00)
[2020-10-25] MEDS: PANTOPRAZOLE 40 MG TAB PO SCH (10:00)
[2020-10-25] MEDS: CLOPIDOGREL BISULFATE 75 MG TAB PO SCH (10:00)
[2020-10-25] MEDS: NICOTINE 14 MG/24HR TOPICAL PATCH TD SCH (10:00)
[2020-10-25] MEDS ORDERED: VERAPAMIL 2.5MG/ML INJ 2ML VIAL IV ONE ×2 (10:21→10:30)
[2020-10-25] MEDS ORDERED: NITROGLYCERIN 5MG/ML 10ML VIAL IV ONE (10:22)
[2020-10-25] MEDS ORDERED: CLOPIDOGREL 300 MG TAB ONE (11:36)
[2020-10-25] MEDS ORDERED: ASPirin 325 MG TAB ONE (11:36)
[2020-10-25 13:00] VITALS: BP 122/66
[2020-10-25] MEDS: MORPHINE SULFATE INJECTION 2 MG/ML SYRG IV PRN (14:48)
[2020-10-25] MEDS ORDERED: CLOP75TA28 PO (16:06)
[2020-10-25] MEDS ORDERED: ASPI1CHW15 PO (16:06)
[2020-10-25] MEDS ORDERED: LEVO500T31 PO (16:09)
[2020-10-25] MEDS ORDERED: NIC21P TOP (16:17)
[2020-10-25 17:00] VITALS: BP 140/62
[2020-10-25] MEDS: HYDROcodone-ACET 5/325MG TAB PO PRN (17:26)
[2020-10-25 17:51] VITALS: BP 140/62
[2020-10-25] MEDS: DAKINS HALF STR 0.25% (NaHypochlorite) 473 ML TOPICAL SOL TOP SCH (17:51)
[2020-10-26] MEDS ORDERED: levoFLOXacin 500 MG TAB PO SCH (10:00)
[2020-11-04] MEDS ORDERED: CLINDAMYCIN 300MG IV 50 ML IV SCH (18:00)
== END 2020-10-25 18:50 | disposition home health service (06) | DRG 270 ==
LOC: EDBD 06:04 → ER 06:04 → OVERFLOW 06:05 → TELE-WESTW 10-21 02:03
PROVIDERS: ADMIT Nurse Practitioner Acute Care; ATTEND Internal Medicine
PROC: 0LBW0ZZ Excision of Left Foot Tendon, Open Approach (ICD-10-PCS; principal; 2020-10-23 11:25)
PROC: 04CL3ZZ Extirpation of Matter from Left Femoral Artery, Percutaneous Approach (ICD-10-PCS; 2020-10-25)
PROC: 047L3Z1 Dilation of Left Femoral Artery using Drug-Coated Balloon, Percutaneous Approach (ICD-10-PCS; 2020-10-25)
PROC: 047N3Z1 Dilation of Left Popliteal Artery using Drug-Coated Balloon, Percutaneous Approach (ICD-10-PCS; 2020-10-25)
PROC: 04CN3ZZ Extirpation of Matter from Left Popliteal Artery, Percutaneous Approach (ICD-10-PCS; 2020-10-25)
PROC: B41GYZZ Fluoroscopy of Left Lower Extremity Arteries using Other Contrast (ICD-10-PCS; 2020-10-25)
PROC: B41FYZZ Fluoroscopy of Right Lower Extremity Arteries using Other Contrast (ICD-10-PCS; 2020-10-25)
PROC: 047L3DZ Dilation of Left Femoral Artery with Intraluminal Device, Percutaneous Approach (ICD-10-PCS; 2020-10-25)
DX: E11.51 Type 2 diabetes mellitus with diabetic peripheral angiopathy without gangrene (principal); N17.0 Acute kidney failure with tubular necrosis; L97.429 Non-pressure chronic ulcer of left heel and midfoot with unspecified severity; I48.20 Chronic atrial fibrillation, unspecified; R65.10 Systemic inflammatory response syndrome (SIRS) of non-infectious origin without acute organ dysfunction; L03.116 Cellulitis of left lower limb; E11.10 Type 2 diabetes mellitus with ketoacidosis without coma; E11.621 Type 2 diabetes mellitus with foot ulcer; B96.5 Pseudomonas (aeruginosa) (mallei) (pseudomallei) as the cause of diseases classified elsewhere; I50.9 Heart failure, unspecified; E86.0 Dehydration; N18.9 Chronic kidney disease, unspecified; E11.21 Type 2 diabetes mellitus with diabetic nephropathy; E87.6 Hypokalemia; E78.5 Hyperlipidemia, unspecified; F17.210 Nicotine dependence, cigarettes, uncomplicated; N40.0 Benign prostatic hyperplasia without lower urinary tract symptoms; Z20.822 Contact with and (suspected) exposure to COVID-19; E11.22 Type 2 diabetes mellitus with diabetic chronic kidney disease; E03.9 Hypothyroidism, unspecified; F41.9 Anxiety disorder, unspecified; G89.29 Other chronic pain; M54.9 Dorsalgia, unspecified; Z79.01 Long term (current) use of anticoagulants; Z88.5 Allergy status to narcotic agent; Z79.4 Long term (current) use of insulin; Z89.511 Acquired absence of right leg below knee; I11.0 Hypertensive heart disease with heart failure
CPT/HCPCS: 36415; 36600; 37225; 71045; 73700; 75716; 80048; 80053; 80061; 81001; 82010; 82805; 82962; 83036; 83605; 83735; 83880; 83930; 84100; 84443; 84484; 85007; 85025; 85027; 85379; 85610; 85730; 86850; 86900; 86901; 87040; 87070; 87075; 87077; 87086; 87186; 87205; 87426; 93005; 93926; 99152; 99153; C1724; C1725; C1769; C1781; G0378; J0696; J1100; J1815; J2250; J2405; J2543; J2704; J3490

== ENCOUNTER 2021-05-02 17:51 | Inpatient (IN) | payer MEDICARE, OTHER ==
[~2021-05-02] VITALS: Ht 165.1 cm; Wt 63.9 kg
[~2021-05-02 17:51] MED LIST changes: +ASPI1CHW15 PO; +CLOP75TA28 PO; +LEVO500T31 PO; +NIC21P TOP
[2021-05-02] MEDS ORDERED: CLINDAMYCIN 600MG IV 50 ML IV ONE (18:30)
[2021-05-02] MEDS ORDERED: SODIUM CHLORIDE 0.9% 500 ML IV ONE (18:30)
[2021-05-02] MEDS ORDERED: ONDANSETRON HCL 4 MG/2 ML VIAL IV ONE ×2 (18:30→22:15)
[2021-05-02] MEDS ORDERED: MORPHINE SULFATE 4 MG/ML SYR/VIAL IV ONE ×2 (18:30→22:15)
[2021-05-02 18:42] LABS: Lymphocytes # (auto) 0.6 10 ^3/uL (0.4-5.4); Mean Corpuscular Volume 75.7 fL (80.0-100.0)
[2021-05-02 18:43] LABS: Basophils # (auto) 0.1 10 ^3/uL (0-0.2); Basophils % (auto) 0.3 % (0.0-2.0); Eosinophils # (auto) 0 10 ^3/uL (0-0.8); Eosinophils % (auto) 0.2 % (0.0-7.0); Hematocrit 26.4 % (41.0-53.0); Hemoglobin 8.7 g/dL (13.5-17.5); Lymphocytes % (auto) 2.6 % (10.0-50.0); Mean Corpuscular Hemoglobin 24.8 pg (28.0-32.0); Mean Corpuscular Hgb Conc. 32.8 g/dL (32.0-36.0); Monocytes # (auto) 1.1 10 ^3/uL (0-1.3); Monocytes % (auto) 4.6 % (0.0-12.0); Neutrophils # (auto) 22.8 10 ^3/uL (1.6-8.6); Neutrophils % (auto) 92.3 % (37.0-80.0); Red Blood Cells 3.49 10^6/uL (4.5-5.90); Red Cell Distribution Width 16.9 % (11.8-14.3); White Blood Cell 24.7 10^3/uL (4.4-10.8)
[2021-05-02 19:05] LABS: Albumin 1.9 g/dL (3.4-5.0); Calcium 8.6 mg/dL (8.5-10.1); Potassium 3.5 mmol/L (3.5-5.1)
[2021-05-02 19:10] LABS: Bilirubin, Total 0.3 mg/dL (0.2-1.0); Total Protein 7.2 g/dL (6.4-8.2)
[2021-05-02] MEDS ORDERED: DOCUSATE SOD 100 MG CAP PO PRN (23:30)
[2021-05-02] MEDS ORDERED: ALBUMIN 25% 100 ML IV ONE (23:30)
[2021-05-02] MEDS ORDERED: ACETAMINOPHEN 325 MG TAB PO PRN (23:30)
[2021-05-02] MEDS ORDERED: POTASSIUM CHL 20 Meq TABLET PO ONE (23:30)
[2021-05-02] MEDS ORDERED: NITROGLYCERIN 0.4 MG SL TAB SL PRN (23:30)
[2021-05-02] MEDS ORDERED: MORPHINE SULFATE INJECTION 2 MG/ML SYRG IV PRN (23:30)
[2021-05-02] MEDS ORDERED: VANCOMYCIN PER PHARMACY 0 MG IV SCH (23:30)
[2021-05-03] MEDS ORDERED: VANCOMYCIN 1GM/250ML 250 ML IV ONE (00:15)
[2021-05-03] MEDS: CLINDAMYCIN 600MG IV 50 ML IV SCH ×4 (01:09→23:37)
[2021-05-03] MEDS: SODIUM CHLORIDE 0.9% 1,000 ML IV SCH ×2 (01:09→15:00)
[2021-05-03 03:59] LABS: Basophils # (auto) 0.1 10 ^3/uL (0-0.2); Eosinophils # (auto) 0.1 10 ^3/uL (0-0.8); Hemoglobin 7.1 g/dL (13.5-17.5); Lymphocytes # (auto) 1.2 10 ^3/uL (0.4-5.4); Red Cell Distribution Width 16.5 % (11.8-14.3)
[2021-05-03 04:01] LABS: Basophils % (auto) 0.4 % (0.0-2.0); Eosinophils % (auto) 0.5 % (0.0-7.0); Hematocrit 21.5 % (41.0-53.0); Lymphocytes % (auto) 5.9 % (10.0-50.0); Mean Corpuscular Hemoglobin 25.2 pg (28.0-32.0); Mean Corpuscular Volume 76.4 fL (80.0-100.0); Monocytes # (auto) 1.5 10 ^3/uL (0-1.3); Monocytes % (auto) 7.6 % (0.0-12.0); Neutrophils # (auto) 17.3 10 ^3/uL (1.6-8.6); Neutrophils % (auto) 85.6 % (37.0-80.0); Red Blood Cells 2.81 10^6/uL (4.5-5.90); White Blood Cell 20.2 10^3/uL (4.4-10.8)
[2021-05-03 04:20] LABS: Albumin 1.8 g/dL (3.4-5.0); BUN/Creatinine Ratio 15.9; Calcium 7.6 mg/dL (8.5-10.1); Potassium 3.3 mmol/L (3.5-5.1)
[2021-05-03 04:22] LABS: Bilirubin, Total 0.4 mg/dL (0.2-1.0); Total Protein 6.1 g/dL (6.4-8.2)
[2021-05-03] MEDS: InsuLIN REG 1unit/0.01ml Soln (100units/ml) SC SCH ×4 (06:10→23:42)
[2021-05-03] MEDS: ACCU-CHEK COMFORT CURVE STRIP VI SCH ×4 (06:10→23:38)
[2021-05-03 06:37] VITALS: BP 150/60
[2021-05-03 08:00] VITALS: BP 136/71
[2021-05-03] MEDS: MORPHINE SULFATE 4 MG/ML SYR/VIAL IV PRN ×2 (08:32→23:39)
[2021-05-03] MEDS: ASCORBIC ACID 500 MG TAB PO SCH ×2 (08:32→23:37)
[2021-05-03] MEDS: MULTIPLE VITAMIN TAB PO SCH (08:33)
[2021-05-03] MEDS: ZINC SULFATE 220mg CAP or TAB PO SCH (08:33)
[2021-05-03] MEDS: HEPARIN SODIUM (PORCINE) 5000 UNITS/ML 1ML VIAL SC SCH ×2 (08:43→23:41)
[2021-05-03 09:00] VITALS: BP 136/71
[2021-05-03] MEDS: HYDROcodone-ACET 5/325MG TAB PO PRN ×3 (11:07→20:30)
[2021-05-03 12:50] VITALS: BP 142/73
[2021-05-03] MEDS ORDERED: POTASSIUM EFFERVESENT TAB 25 MEQ GT ONE (15:00)
[2021-05-03 17:00] VITALS: BP 159/85
[2021-05-03] MEDS: VANCOMYCIN 750mg/250ml 250 ML IV SCH (17:52)
[2021-05-03 20:27] LABS: INR 1.17 (0.9-1.15)
[2021-05-03 22:00] VITALS: BP 151/79
[2021-05-04] MEDS: MORPHINE SULFATE 4 MG/ML SYR/VIAL IV PRN ×2 (03:42→20:05)
[2021-05-04 05:00] VITALS: BP 165/79
[2021-05-04] MEDS: VANCOMYCIN 750mg/250ml 250 ML IV SCH ×2 (06:18→18:36)
[2021-05-04] MEDS: CLINDAMYCIN 600MG IV 50 ML IV SCH ×3 (06:18→21:43)
[2021-05-04] MEDS: ACCU-CHEK COMFORT CURVE STRIP VI SCH ×4 (06:51→21:44)
[2021-05-04] MEDS: InsuLIN REG 1unit/0.01ml Soln (100units/ml) SC SCH ×4 (06:53→22:14)
[2021-05-04] MEDS: SODIUM CHLORIDE 0.9% 1,000 ML IV SCH (08:50)
[2021-05-04 09:00] VITALS: BP 150/72
[2021-05-04] MEDS: ASCORBIC ACID 500 MG TAB PO SCH ×2 (10:00→21:43)
[2021-05-04] MEDS: ZINC SULFATE 220mg CAP or TAB PO SCH (10:00)
[2021-05-04] MEDS: HEPARIN SODIUM (PORCINE) 5000 UNITS/ML 1ML VIAL SC SCH ×2 (10:00→21:36)
[2021-05-04] MEDS: MULTIPLE VITAMIN TAB PO SCH (10:00)
[2021-05-04] MEDS ORDERED: LIDOCAINE 1% HCL (LOCAL ANESTH.) INJ 20ML MDV ONE (11:49)
[2021-05-04] MEDS ORDERED: BUPIVACAINE HCL 50 ML ONE (11:49)
[2021-05-04] MEDS ORDERED: KETAMINE HCL 10 ML ONE (11:53)
[2021-05-04] MEDS ORDERED: fentaNYL CITRATE 100 MCG/2 ML VL ONE (11:53)
[2021-05-04] MEDS ORDERED: GLYCOPYRROLATE 0.2 MG/ML 1ML VIAL ONE (11:54)
[2021-05-04] MEDS ORDERED: ONDANSETRON HCL 4 MG/2 ML VIAL ONE (11:54)
[2021-05-04] MEDS ORDERED: PROPOFOL 10 MG/ML 20 ML IV ONE (11:54)
[2021-05-04] MEDS ORDERED: MIDAZOLAM HCL 2MG/2ML 2ml VIAL (1mg/ml) ONE (11:54)
[2021-05-04] MEDS ORDERED: LIDOCAINE 2% (LOCAL ANESTH.) PF 5ml SDV ONE (11:54)
[2021-05-04] MEDS ORDERED: ceFAZolin 1GM/50ML 100 ML IV ONE (12:09)
[2021-05-04] MEDS ORDERED: HYDROmorphone HCL 2 MG/ML VL ONE (12:47)
[2021-05-04] MEDS ORDERED: LIDOCAINE HCL 2% TOP JELLY 5ML TOP ONE (12:58)
[2021-05-04 13:00] VITALS: BP 153/83
[2021-05-04] MEDS ORDERED: HYDROmorphone HCL 2 MG/ML VL IV PRN (13:45)
[2021-05-04] MEDS ORDERED: ONDANSETRON HCL 4 MG/2 ML VIAL IV PRN (13:45)
[2021-05-04] MEDS ORDERED: ACCU-CHEK COMFORT CURVE STRIP VI ONE (13:45)
[2021-05-04 17:00] VITALS: BP 155/87
[2021-05-04 17:19] LABS: Basophils # (auto) 0.1 10 ^3/uL (0-0.2); Basophils % (auto) 0.5 % (0.0-2.0); Eosinophils # (auto) 0.1 10 ^3/uL (0-0.8); Eosinophils % (auto) 0.6 % (0.0-7.0); Hematocrit 22.6 % (41.0-53.0); Hemoglobin 7.2 g/dL (13.5-17.5); Lymphocytes % (auto) 4.8 % (10.0-50.0); Mean Corpuscular Hemoglobin 24.2 pg (28.0-32.0); Mean Corpuscular Hgb Conc. 31.7 g/dL (32.0-36.0); Mean Corpuscular Volume 76.4 fL (80.0-100.0); Monocytes # (auto) 1.4 10 ^3/uL (0-1.3); Neutrophils # (auto) 17.6 10 ^3/uL (1.6-8.6); Neutrophils % (auto) 87.1 % (37.0-80.0); Nucleated Red Blood Cells % 0.1 %; Red Blood Cells 2.95 10^6/uL (4.5-5.90); White Blood Cell 20.2 10^3/uL (4.4-10.8)
[2021-05-04 22:00] VITALS: BP 138/76
[2021-05-04] MEDS: HYDROcodone-ACET 5/325MG TAB PO PRN (23:47)
[2021-05-05] MEDS: MORPHINE SULFATE 4 MG/ML SYR/VIAL IV PRN ×3 (00:50→20:57)
[2021-05-05] MEDS: SODIUM CHLORIDE 0.9% 1,000 ML IV SCH ×2 (01:30→18:19)
[2021-05-05] MEDS: VANCOMYCIN 750mg/250ml 250 ML IV SCH ×2 (04:08→15:21)
[2021-05-05 05:20] LABS: Basophils # (auto) 0.1 10 ^3/uL (0-0.2); Nucleated Red Blood Cells % 0.1 %
[2021-05-05 05:25] LABS: Basophils % (auto) 0.5 % (0.0-2.0); Eosinophils # (auto) 0.2 10 ^3/uL (0-0.8); Eosinophils % (auto) 1.1 % (0.0-7.0); Hematocrit 21.5 % (41.0-53.0); Hemoglobin 7.1 g/dL (13.5-17.5); Lymphocytes % (auto) 4.7 % (10.0-50.0); Mean Corpuscular Hemoglobin 25.3 pg (28.0-32.0); Mean Corpuscular Volume 76.7 fL (80.0-100.0); Monocytes # (auto) 1.5 10 ^3/uL (0-1.3); Monocytes % (auto) 6.9 % (0.0-12.0); Neutrophils # (auto) 18.5 10 ^3/uL (1.6-8.6); Neutrophils % (auto) 86.8 % (37.0-80.0); White Blood Cell 21.3 10^3/uL (4.4-10.8)
[2021-05-05 05:33] LABS: INR 1.24 (0.9-1.15); Partial Thromboplastin Time 35.4 sec (23.6-33.0)
[2021-05-05] MEDS: CLINDAMYCIN 600MG IV 50 ML IV SCH (05:52)
[2021-05-05 05:54] VITALS: BP 165/78
[2021-05-05 06:00] LABS: BUN/Creatinine Ratio 18.8; Calcium 8.1 mg/dL (8.5-10.1); Potassium 3.9 mmol/L (3.5-5.1)
[2021-05-05] MEDS: InsuLIN REG 1unit/0.01ml Soln (100units/ml) SC SCH ×4 (06:43→22:15)
[2021-05-05] MEDS: ACCU-CHEK COMFORT CURVE STRIP VI SCH ×4 (06:44→21:58)
[2021-05-05 08:54] VITALS: BP 155/73
[2021-05-05] MEDS ORDERED: SODIUM CHL 0.9% 50 ML ONE ×2 (09:44→11:06)
[2021-05-05] MEDS ORDERED: MIDAZOLAM HCL 2MG/2ML 2ml VIAL (1mg/ml) ONE ×2 (09:44→10:37)
[2021-05-05] MEDS ORDERED: ANGIOMAX 250 MG VIAL IV ONE ×2 (09:44→11:06)
[2021-05-05] MEDS ORDERED: fentaNYL CITRATE 100 MCG/2 ML VL ONE ×3 (09:44→11:06)
[2021-05-05] MEDS ORDERED: LIDOCAINE 2%HCL (LOCAL ANESTH.) INJ 20ML MDV ONE (09:50)
[2021-05-05] MEDS ORDERED: HEPARIN IN NS 1000Units/500mL 1,500 ML ONE (09:51)
[2021-05-05] MEDS ORDERED: IODIXANOL 320MG/ML 100ML BTL IV ONE (09:51)
[2021-05-05] MEDS: MULTIPLE VITAMIN TAB PO SCH (10:00)
[2021-05-05] MEDS: ZINC SULFATE 220mg CAP or TAB PO SCH (10:00)
[2021-05-05] MEDS: ASCORBIC ACID 500 MG TAB PO SCH ×2 (10:00→22:00)
[2021-05-05] MEDS ORDERED: diphenhdrAMINE HCL 50 MG/1 ML VL ONE (10:14)
[2021-05-05] MEDS ORDERED: hydrALAZINE HCL 20 MG/ML VL ONE (10:19)
[2021-05-05] MEDS ORDERED: EPTIFIBATIDE INJ (2MG/ML) 10ML VIAL IV ONE (11:02)
[2021-05-05] MEDS ORDERED: HYDROmorphone HCL 2 MG/ML VL ONE (11:08)
[2021-05-05] MEDS: PIPERACILLIN-TAZOB 3.375GM 100 ML IV SCH ×2 (12:00→18:19)
[2021-05-05] MEDS ORDERED: LISINOPRIL 20 MG TAB PO ONE (12:15)
[2021-05-05] MEDS: HEPARIN SODIUM (PORCINE) 5000 UNITS/ML 1ML VIAL SC SCH ×2 (13:31→20:59)
[2021-05-05 17:06] VITALS: BP 109/53
[2021-05-05 22:00] VITALS: BP 114/55
[2021-05-05] MEDS ORDERED: INSULIN LANTUS (GLARGINE) 1 /0.01ml (100units/ml) SC SCH (22:00)
[2021-05-06] VITALS (8 sets, daily range): BP systolic 116–147; BP diastolic 60–80
[2021-05-06] MEDS: VANCOMYCIN 750mg/250ml 250 ML IV SCH ×2 (00:03→10:00)
[2021-05-06] MEDS: HYDROcodone-ACET 5/325MG TAB PO PRN ×3 (00:11→15:24)
[2021-05-06] MEDS: PIPERACILLIN-TAZOB 3.375GM 100 ML IV SCH ×4 (01:07→17:49)
[2021-05-06] MEDS: MORPHINE SULFATE 4 MG/ML SYR/VIAL IV PRN ×3 (01:14→20:56)
[2021-05-06 06:11] LABS: Basophils # (auto) 0.1 10 ^3/uL (0-0.2); Eosinophils # (auto) 0.2 10 ^3/uL (0-0.8)
[2021-05-06 06:14] LABS: Basophils % (auto) 0.5 % (0.0-2.0); Eosinophils % (auto) 1.1 % (0.0-7.0); Hematocrit 21.8 % (41.0-53.0); Lymphocytes # (auto) 0.9 10 ^3/uL (0.4-5.4); Lymphocytes % (auto) 4.7 % (10.0-50.0); Mean Corpuscular Hemoglobin 24.4 pg (28.0-32.0); Mean Corpuscular Volume 76.3 fL (80.0-100.0); Monocytes # (auto) 1.3 10 ^3/uL (0-1.3); Monocytes % (auto) 6.8 % (0.0-12.0); Neutrophils # (auto) 17.2 10 ^3/uL (1.6-8.6); Neutrophils % (auto) 86.9 % (37.0-80.0); Red Blood Cells 2.85 10^6/uL (4.5-5.90); White Blood Cell 19.8 10^3/uL (4.4-10.8)
[2021-05-06] MEDS: ACCU-CHEK COMFORT CURVE STRIP VI SCH ×4 (06:17→21:07)
[2021-05-06] MEDS: LEVOTHYROXINE SODIUM 100 MCG TAB PO SCH (06:17)
[2021-05-06] MEDS: InsuLIN REG 1unit/0.01ml Soln (100units/ml) SC SCH ×4 (06:18→21:16)
[2021-05-06 06:31] LABS: Potassium 3.8 mmol/L (3.5-5.1)
[2021-05-06 06:45] LABS: BUN/Creatinine Ratio 16.6; Calcium 7.9 mg/dL (8.5-10.1); Magnesium 1.8 mg/dL (1.6-2.6)
[2021-05-06] MEDS: MULTIPLE VITAMIN TAB PO SCH (10:04)
[2021-05-06] MEDS: ASCORBIC ACID 500 MG TAB PO SCH ×2 (10:04→20:56)
[2021-05-06] MEDS: ZINC SULFATE 220mg CAP or TAB PO SCH (10:04)
[2021-05-06] MEDS: HEPARIN SODIUM (PORCINE) 5000 UNITS/ML 1ML VIAL SC SCH ×2 (10:05→21:06)
[2021-05-06] MEDS: LISINOPRIL 20 MG TAB PO SCH (10:06)
[2021-05-06 10:45] LABS: Hematocrit 19.8 % (41.0-53.0)
[2021-05-06] MEDS: SODIUM CHLORIDE 0.9% 1,000 ML IV SCH (10:50)
[2021-05-06 10:58] LABS: Hemoglobin 6.6 g/dL (13.5-17.5)
[2021-05-06] MEDS: ONDANSETRON HCL 4 MG/2 ML VIAL IV PRN (12:14)
[2021-05-06] MEDS ORDERED: MAGNESIUM SULFATE 1GM/100ML 100 ML IV ONE (14:45)
[2021-05-06] MEDS: ATORVASTATIN 20 MG TAB PO SCH (20:56)
[2021-05-06] MEDS: INSULIN LANTUS (GLARGINE) 1 /0.01ml (100units/ml) SC SCH (21:17)
[2021-05-06] MEDS: DAKINS HALF STR 0.25% (NaHypochlorite) 473 ML TOPICAL SOL TOP SCH (23:40)
[2021-05-07] MEDS: HYDROcodone-ACET 5/325MG TAB PO PRN ×2 (00:28→13:36)
[2021-05-07] MEDS: PIPERACILLIN-TAZOB 3.375GM 100 ML IV SCH ×4 (00:28→21:47)
[2021-05-07 00:49] VITALS: BP 149/82
[2021-05-07 02:15] LABS: Hematocrit 24.5 % (41.0-53.0); Hemoglobin 8.2 g/dL (13.5-17.5)
[2021-05-07] MEDS: SODIUM CHLORIDE 0.9% 1,000 ML IV SCH ×3 (03:30→21:06)
[2021-05-07 05:00] VITALS: BP 148/77
[2021-05-07] MEDS: InsuLIN REG 1unit/0.01ml Soln (100units/ml) SC SCH ×4 (06:08→21:19)
[2021-05-07] MEDS: LEVOTHYROXINE SODIUM 100 MCG TAB PO SCH (06:08)
[2021-05-07] MEDS: ACCU-CHEK COMFORT CURVE STRIP VI SCH ×4 (06:09→21:19)
[2021-05-07 06:49] LABS: Calcium 7.9 mg/dL (8.5-10.1); Potassium 3.6 mmol/L (3.5-5.1)
[2021-05-07 06:53] LABS: Basophils # (auto) 0.1 10 ^3/uL (0-0.2); Eosinophils # (auto) 0.4 10 ^3/uL (0-0.8); Hemoglobin 7.7 g/dL (13.5-17.5)
[2021-05-07 07:01] LABS: Basophils % (auto) 0.5 % (0.0-2.0); Eosinophils % (auto) 2.5 % (0.0-7.0); Hematocrit 22.7 % (41.0-53.0); INR 1.1 (0.9-1.15); Lymphocytes % (auto) 6.4 % (10.0-50.0); Mean Corpuscular Hemoglobin 26.2 pg (28.0-32.0); Mean Corpuscular Hgb Conc. 33.9 g/dL (32.0-36.0); Mean Corpuscular Volume 77.2 fL (80.0-100.0); Monocytes # (auto) 1.2 10 ^3/uL (0-1.3); Monocytes % (auto) 7.5 % (0.0-12.0); Neutrophils # (auto) 12.8 10 ^3/uL (1.6-8.6); Neutrophils % (auto) 83.1 % (37.0-80.0); Red Blood Cells 2.94 10^6/uL (4.5-5.90); Red Cell Distribution Width 17.3 % (11.8-14.3); White Blood Cell 15.4 10^3/uL (4.4-10.8)
[2021-05-07 09:00] VITALS: BP 137/69
[2021-05-07] MEDS: ZINC SULFATE 220mg CAP or TAB PO SCH (09:52)
[2021-05-07] MEDS: MULTIPLE VITAMIN TAB PO SCH (09:52)
[2021-05-07] MEDS: ASCORBIC ACID 500 MG TAB PO SCH ×2 (09:52→21:48)
[2021-05-07] MEDS: LISINOPRIL 20 MG TAB PO SCH (09:53)
[2021-05-07] MEDS: DAKINS HALF STR 0.25% (NaHypochlorite) 473 ML TOPICAL SOL TOP SCH ×2 (09:54→21:06)
[2021-05-07] MEDS: HEPARIN SODIUM (PORCINE) 5000 UNITS/ML 1ML VIAL SC SCH ×2 (09:54→21:06)
[2021-05-07] MEDS: MORPHINE SULFATE 4 MG/ML SYR/VIAL IV PRN ×3 (10:20→21:07)
[2021-05-07 13:00] VITALS: BP 151/80
[2021-05-07 17:00] VITALS: BP 143/79
[2021-05-07] MEDS: ATORVASTATIN 20 MG TAB PO SCH (21:47)
[2021-05-07] MEDS: METOPROLOL TARTRATE 25 MG TAB PO SCH (21:48)
[2021-05-07] MEDS: INSULIN LANTUS (GLARGINE) 1 /0.01ml (100units/ml) SC SCH (21:48)
[2021-05-07] MEDS: ONDANSETRON HCL 4 MG/2 ML VIAL IV PRN (21:49)
[2021-05-07 22:00] VITALS: BP 153/80
[2021-05-08] MEDS: MORPHINE SULFATE 4 MG/ML SYR/VIAL IV PRN ×3 (04:19→20:53)
[2021-05-08 05:00] VITALS: BP 143/72
[2021-05-08 06:25] LABS: Basophils # (auto) 0.1 10 ^3/uL (0-0.2); Basophils % (auto) 0.5 % (0.0-2.0)
[2021-05-08] MEDS: InsuLIN REG 1unit/0.01ml Soln (100units/ml) SC SCH ×4 (06:25→22:00)
[2021-05-08] MEDS: ACCU-CHEK COMFORT CURVE STRIP VI SCH ×2 (06:25→17:11)
[2021-05-08] MEDS: LEVOTHYROXINE SODIUM 100 MCG TAB PO SCH (06:26)
[2021-05-08] MEDS: PIPERACILLIN-TAZOB 3.375GM 100 ML IV SCH ×2 (06:26→14:00)
[2021-05-08] MEDS: SODIUM CHLORIDE 0.9% 1,000 ML IV SCH ×2 (06:26→18:56)
[2021-05-08 06:27] LABS: Eosinophils # (auto) 0.2 10 ^3/uL (0-0.8); Eosinophils % (auto) 1.1 % (0.0-7.0); Hemoglobin 8.1 g/dL (13.5-17.5); Lymphocytes % (auto) 6.2 % (10.0-50.0); Mean Corpuscular Hemoglobin 26.3 pg (28.0-32.0); Mean Corpuscular Hgb Conc. 33.7 g/dL (32.0-36.0); Mean Corpuscular Volume 77.8 fL (80.0-100.0); Monocytes # (auto) 1.3 10 ^3/uL (0-1.3); Monocytes % (auto) 7.8 % (0.0-12.0); Neutrophils % (auto) 84.4 % (37.0-80.0); Red Blood Cells 3.08 10^6/uL (4.5-5.90); Red Cell Distribution Width 17.2 % (11.8-14.3); White Blood Cell 16.6 10^3/uL (4.4-10.8)
[2021-05-08 06:42] LABS: BUN/Creatinine Ratio 12.5; Calcium 7.9 mg/dL (8.5-10.1); Potassium 3.4 mmol/L (3.5-5.1)
[2021-05-08 09:00] VITALS: BP 141/78
[2021-05-08] MEDS: DAKINS HALF STR 0.25% (NaHypochlorite) 473 ML TOPICAL SOL TOP SCH (10:00)
[2021-05-08] MEDS: HEPARIN SODIUM (PORCINE) 5000 UNITS/ML 1ML VIAL SC SCH ×2 (10:00→22:00)
[2021-05-08 12:44] VITALS: BP 163/78
[2021-05-08 17:00] VITALS: BP 153/79
[2021-05-08] MEDS ORDERED: hydrALAZINE HCL 20 MG/ML VL IV PRN (17:15)
[2021-05-08] MEDS: ZINC SULFATE 220mg CAP or TAB PO SCH (18:46)
[2021-05-08] MEDS: FLORASTOR (S. BOULARDII) 250 MG CAP PO SCH (18:47)
[2021-05-08] MEDS: METOPROLOL TARTRATE 25 MG TAB PO SCH (18:49)
[2021-05-08] MEDS: MULTIPLE VITAMIN TAB PO SCH (18:50)
[2021-05-08] MEDS: ASCORBIC ACID 500 MG TAB PO SCH (18:51)
[2021-05-08 22:00] VITALS: BP 140/72
[2021-05-08] MEDS: INSULIN LANTUS (GLARGINE) 1 /0.01ml (100units/ml) SC SCH (22:00)
[2021-05-08] MEDS ORDERED: HEPARIN SODIUM (PORCINE) 5000 UNITS/ML 1ML VIAL ONE (23:53)
[2021-05-09] MEDS: PIPERACILLIN-TAZOB 3.375GM 100 ML IV SCH ×3 (00:20→14:00)
[2021-05-09] MEDS: SODIUM CHLORIDE 0.9% 1,000 ML IV SCH ×4 (00:20→17:06)
[2021-05-09] MEDS: ATORVASTATIN 20 MG TAB PO SCH (00:21)
[2021-05-09] MEDS: ACCU-CHEK COMFORT CURVE STRIP VI SCH ×4 (00:22→18:36)
[2021-05-09] MEDS: METOPROLOL TARTRATE 25 MG TAB PO SCH ×2 (00:22→12:16)
[2021-05-09] MEDS: ASCORBIC ACID 500 MG TAB PO SCH ×2 (00:22→10:00)
[2021-05-09] MEDS: DAKINS HALF STR 0.25% (NaHypochlorite) 473 ML TOPICAL SOL TOP SCH ×3 (01:35→22:00)
[2021-05-09 05:00] VITALS: BP 161/72
[2021-05-09 06:18] LABS: Basophils # (auto) 0.1 10 ^3/uL (0-0.2); Hemoglobin 7.7 g/dL (13.5-17.5)
[2021-05-09 06:19] LABS: Calcium 7.9 mg/dL (8.5-10.1); Magnesium 1.8 mg/dL (1.6-2.6); Potassium 3.8 mmol/L (3.5-5.1)
[2021-05-09 06:22] LABS: Basophils % (auto) 0.4 % (0.0-2.0); Eosinophils # (auto) 0.2 10 ^3/uL (0-0.8); Hematocrit 23.5 % (41.0-53.0); Lymphocytes # (auto) 0.9 10 ^3/uL (0.4-5.4); Lymphocytes % (auto) 5.3 % (10.0-50.0); Mean Corpuscular Hemoglobin 25.8 pg (28.0-32.0); Mean Corpuscular Hgb Conc. 32.9 g/dL (32.0-36.0); Mean Corpuscular Volume 78.5 fL (80.0-100.0); Monocytes # (auto) 0.9 10 ^3/uL (0-1.3); Monocytes % (auto) 5.4 % (0.0-12.0); Neutrophils # (auto) 14.9 10 ^3/uL (1.6-8.6); Neutrophils % (auto) 87.9 % (37.0-80.0); Red Cell Distribution Width 17.5 % (11.8-14.3); White Blood Cell 16.9 10^3/uL (4.4-10.8)
[2021-05-09] MEDS: LEVOTHYROXINE SODIUM 100 MCG TAB PO SCH (06:29)
[2021-05-09] MEDS: InsuLIN REG 1unit/0.01ml Soln (100units/ml) SC SCH ×3 (06:30→18:48)
[2021-05-09] MEDS: MORPHINE SULFATE 4 MG/ML SYR/VIAL IV PRN ×3 (06:31→18:37)
[2021-05-09 07:44] LABS: BUN/Creatinine Ratio 14.3
[2021-05-09 08:00] VITALS: BP 152/81
[2021-05-09] MEDS ORDERED: ceFAZolin 1GM/50ML 100 ML IV ONE (08:55)
[2021-05-09] MEDS ORDERED: fentaNYL CITRATE 5 ML ONE (08:57)
[2021-05-09] MEDS ORDERED: ROCURONIUM 10MG/ML 10ML VIAL IV ONE (08:57)
[2021-05-09] MEDS ORDERED: MIDAZOLAM HCL 2MG/2ML 2ml VIAL (1mg/ml) ONE (08:57)
[2021-05-09] MEDS ORDERED: PROPOFOL 10 MG/ML 20 ML IV ONE (09:01)
[2021-05-09] MEDS ORDERED: LIDOCAINE 2% (LOCAL ANESTH.) PF 5ml SDV ONE (09:01)
[2021-05-09] MEDS ORDERED: ONDANSETRON HCL 4 MG/2 ML VIAL ONE (09:01)
[2021-05-09] MEDS: ZINC SULFATE 220mg CAP or TAB PO SCH (10:00)
[2021-05-09] MEDS: FLORASTOR (S. BOULARDII) 250 MG CAP PO SCH (10:00)
[2021-05-09] MEDS: HEPARIN SODIUM (PORCINE) 5000 UNITS/ML 1ML VIAL SC SCH (10:00)
[2021-05-09] MEDS: MULTIPLE VITAMIN TAB PO SCH (10:00)
[2021-05-09] MEDS ORDERED: POVIDONE IODINE 10 % TOPICAL OINT 30GM TOP ONE (10:05)
[2021-05-09] MEDS ORDERED: ONDANSETRON HCL 4 MG/2 ML VIAL IV PRN (10:30)
[2021-05-09] MEDS: HYDROmorphone HCL 2 MG/ML VL IV PRN ×3 (10:52→11:20)
[2021-05-09] MEDS ORDERED: GLYCOPYRROLATE 0.2 MG/ML 1ML VIAL ONE (10:56)
[2021-05-09] MEDS ORDERED: LABETALOL HCL 5 MG/ML 4ML SYRINGE IV ONE ×2 (11:12→11:30)
[2021-05-09 12:00] VITALS: BP 176/87
[2021-05-09] MEDS ORDERED: MAGNESIUM SULFATE 1GM/100ML 100 ML IV ONE (14:30)
[2021-05-09] MEDS: HYDROcodone-ACET 5/325MG TAB PO PRN (15:33)
[2021-05-09 16:00] VITALS: BP 155/82
[2021-05-09 22:00] VITALS: BP 162/81
[2021-05-10] MEDS: PIPERACILLIN-TAZOB 3.375GM 100 ML IV SCH ×3 (00:10→14:00)
[2021-05-10] MEDS: ATORVASTATIN 20 MG TAB PO SCH ×2 (00:10→22:44)
[2021-05-10] MEDS: METOPROLOL TARTRATE 25 MG TAB PO SCH ×3 (00:12→22:44)
[2021-05-10] MEDS: ACCU-CHEK COMFORT CURVE STRIP VI SCH ×5 (00:12→22:45)
[2021-05-10] MEDS: ASCORBIC ACID 500 MG TAB PO SCH ×3 (00:12→22:44)
[2021-05-10] MEDS: MORPHINE SULFATE 4 MG/ML SYR/VIAL IV PRN ×5 (00:13→22:46)
[2021-05-10] MEDS: InsuLIN REG 1unit/0.01ml Soln (100units/ml) SC SCH ×5 (00:14→22:00)
[2021-05-10] MEDS: INSULIN LANTUS (GLARGINE) 1 /0.01ml (100units/ml) SC SCH (00:15)
[2021-05-10] MEDS: HEPARIN SODIUM (PORCINE) 5000 UNITS/ML 1ML VIAL SC SCH ×2 (00:16→10:00)
[2021-05-10 05:00] VITALS: BP 176/77
[2021-05-10] MEDS: LEVOTHYROXINE SODIUM 100 MCG TAB PO SCH (06:37)
[2021-05-10 07:05] LABS: Basophils # (auto) 0.1 10 ^3/uL (0-0.2); Basophils % (auto) 0.5 % (0.0-2.0); Eosinophils # (auto) 0.1 10 ^3/uL (0-0.8); Eosinophils % (auto) 0.5 % (0.0-7.0); Hematocrit 26.6 % (41.0-53.0); Hemoglobin 8.6 g/dL (13.5-17.5); Lymphocytes # (auto) 0.8 10 ^3/uL (0.4-5.4); Lymphocytes % (auto) 3.4 % (10.0-50.0); Mean Corpuscular Hgb Conc. 32.3 g/dL (32.0-36.0); Mean Corpuscular Volume 77.5 fL (80.0-100.0); Monocytes # (auto) 1.1 10 ^3/uL (0-1.3); Monocytes % (auto) 4.7 % (0.0-12.0); Neutrophils # (auto) 20.6 10 ^3/uL (1.6-8.6); Neutrophils % (auto) 90.9 % (37.0-80.0); Nucleated Red Blood Cells % 0.8 %; Red Blood Cells 3.44 10^6/uL (4.5-5.90); Red Cell Distribution Width 17.6 % (11.8-14.3); White Blood Cell 22.6 10^3/uL (4.4-10.8)
[2021-05-10 07:18] LABS: Potassium 3.6 mmol/L (3.5-5.1)
[2021-05-10 07:26] LABS: BUN/Creatinine Ratio 15.6; Calcium 8.4 mg/dL (8.5-10.1)
[2021-05-10 08:00] VITALS: BP 130/64
[2021-05-10] MEDS: HYDROcodone-ACET 5/325MG TAB PO PRN ×2 (09:45→17:20)
[2021-05-10] MEDS: ZINC SULFATE 220mg CAP or TAB PO SCH (09:51)
[2021-05-10] MEDS: FLORASTOR (S. BOULARDII) 250 MG CAP PO SCH (09:51)
[2021-05-10] MEDS: MULTIPLE VITAMIN TAB PO SCH (09:52)
[2021-05-10] MEDS: DAKINS HALF STR 0.25% (NaHypochlorite) 473 ML TOPICAL SOL TOP SCH ×2 (09:53→22:00)
[2021-05-10] MEDS: SODIUM CHLORIDE 0.9% 1,000 ML IV SCH (10:56)
[2021-05-10 12:00] VITALS: BP 152/83
[2021-05-10 16:00] VITALS: BP 159/86
[2021-05-10] MEDS: hydrALAZINE HCL 20 MG/ML VL IV PRN (16:11)
[2021-05-10 22:00] VITALS: BP 148/66
[2021-05-11] MEDS: PIPERACILLIN-TAZOB 3.375GM 100 ML IV SCH ×4 (00:17→21:23)
[2021-05-11] MEDS: HEPARIN SODIUM (PORCINE) 5000 UNITS/ML 1ML VIAL SC SCH ×3 (00:18→21:24)
[2021-05-11] MEDS: INSULIN LANTUS (GLARGINE) 1 /0.01ml (100units/ml) SC SCH ×2 (00:21→21:27)
[2021-05-11 05:00] VITALS: BP 157/69
[2021-05-11 05:54] LABS: Basophils # (auto) 0.1 10 ^3/uL (0-0.2); Lymphocytes # (auto) 0.7 10 ^3/uL (0.4-5.4); Lymphocytes % (auto) 4.2 % (10.0-50.0)
[2021-05-11 05:56] LABS: Basophils % (auto) 0.6 % (0.0-2.0); Eosinophils # (auto) 0.2 10 ^3/uL (0-0.8); Eosinophils % (auto) 1.4 % (0.0-7.0); Hematocrit 23.7 % (41.0-53.0); Hemoglobin 7.9 g/dL (13.5-17.5); Mean Corpuscular Hemoglobin 25.9 pg (28.0-32.0); Mean Corpuscular Hgb Conc. 33.4 g/dL (32.0-36.0); Mean Corpuscular Volume 77.4 fL (80.0-100.0); Monocytes % (auto) 5.7 % (0.0-12.0); Neutrophils % (auto) 88.1 % (37.0-80.0); Red Blood Cells 3.07 10^6/uL (4.5-5.90); Red Cell Distribution Width 18.1 % (11.8-14.3); White Blood Cell 17.1 10^3/uL (4.4-10.8)
[2021-05-11 06:14] LABS: Calcium 8.2 mg/dL (8.5-10.1); Potassium 3.6 mmol/L (3.5-5.1)
[2021-05-11 06:16] LABS: BUN/Creatinine Ratio 12.6
[2021-05-11] MEDS: SODIUM CHLORIDE 0.9% 1,000 ML IV SCH ×2 (06:53→19:05)
[2021-05-11] MEDS: LEVOTHYROXINE SODIUM 100 MCG TAB PO SCH (06:54)
[2021-05-11] MEDS: ACCU-CHEK COMFORT CURVE STRIP VI SCH ×4 (06:55→21:24)
[2021-05-11] MEDS: InsuLIN REG 1unit/0.01ml Soln (100units/ml) SC SCH ×4 (06:56→21:28)
[2021-05-11 08:48] VITALS: BP 150/78
[2021-05-11] MEDS: ZINC SULFATE 220mg CAP or TAB PO SCH (09:12)
[2021-05-11] MEDS: DAKINS HALF STR 0.25% (NaHypochlorite) 473 ML TOPICAL SOL TOP SCH ×2 (09:13→21:24)
[2021-05-11] MEDS: METOPROLOL TARTRATE 25 MG TAB PO SCH ×2 (09:13→21:23)
[2021-05-11] MEDS: MULTIPLE VITAMIN TAB PO SCH (09:13)
[2021-05-11] MEDS: MORPHINE SULFATE 4 MG/ML SYR/VIAL IV PRN ×4 (09:13→23:37)
[2021-05-11] MEDS: ASCORBIC ACID 500 MG TAB PO SCH ×2 (09:13→21:23)
[2021-05-11] MEDS: FLORASTOR (S. BOULARDII) 250 MG CAP PO SCH (09:14)
[2021-05-11 12:00] VITALS: BP 152/78
[2021-05-11] MEDS: HYDROcodone-ACET 5/325MG TAB PO PRN ×2 (12:00→21:29)
[2021-05-11 17:10] VITALS: BP 155/83
[2021-05-11] MEDS: ATORVASTATIN 20 MG TAB PO SCH (21:23)
[2021-05-11 22:00] VITALS: BP 151/78
[2021-05-12] MEDS: PIPERACILLIN-TAZOB 3.375GM 100 ML IV SCH ×3 (04:40→21:41)
[2021-05-12 05:00] VITALS: BP 146/80
[2021-05-12 05:24] LABS: Basophils # (auto) 0.1 10 ^3/uL (0-0.2); Eosinophils # (auto) 0.4 10 ^3/uL (0-0.8); Hematocrit 24.1 % (41.0-53.0); Lymphocytes # (auto) 0.9 10 ^3/uL (0.4-5.4); Monocytes # (auto) 0.9 10 ^3/uL (0-1.3); Monocytes % (auto) 6.6 % (0.0-12.0); Neutrophils # (auto) 11.9 10 ^3/uL (1.6-8.6); White Blood Cell 14.2 10^3/uL (4.4-10.8)
[2021-05-12 05:28] LABS: Basophils % (auto) 0.7 % (0.0-2.0); Eosinophils % (auto) 2.5 % (0.0-7.0); Hemoglobin 7.8 g/dL (13.5-17.5); Lymphocytes % (auto) 6.5 % (10.0-50.0); Mean Corpuscular Hemoglobin 25.4 pg (28.0-32.0); Mean Corpuscular Hgb Conc. 32.5 g/dL (32.0-36.0); Mean Corpuscular Volume 78.2 fL (80.0-100.0); Neutrophils % (auto) 83.7 % (37.0-80.0); Red Blood Cells 3.08 10^6/uL (4.5-5.90); Red Cell Distribution Width 17.3 % (11.8-14.3)
[2021-05-12 05:42] LABS: Calcium 8.2 mg/dL (8.5-10.1); Magnesium 1.8 mg/dL (1.6-2.6); Potassium 3.4 mmol/L (3.5-5.1)
[2021-05-12] MEDS: InsuLIN REG 1unit/0.01ml Soln (100units/ml) SC SCH ×4 (05:56→21:42)
[2021-05-12] MEDS: LEVOTHYROXINE SODIUM 100 MCG TAB PO SCH (05:56)
[2021-05-12] MEDS: ACCU-CHEK COMFORT CURVE STRIP VI SCH ×4 (05:56→21:43)
[2021-05-12] MEDS: MORPHINE SULFATE 4 MG/ML SYR/VIAL IV PRN ×5 (06:00→21:42)
[2021-05-12 09:00] VITALS: BP 161/78
[2021-05-12] MEDS: hydrALAZINE HCL 20 MG/ML VL IV PRN (09:05)
[2021-05-12] MEDS: ZINC SULFATE 220mg CAP or TAB PO SCH (09:06)
[2021-05-12] MEDS: HYDROcodone-ACET 5/325MG TAB PO PRN (09:07)
[2021-05-12] MEDS: ASCORBIC ACID 500 MG TAB PO SCH ×2 (09:07→21:41)
[2021-05-12] MEDS: MULTIPLE VITAMIN TAB PO SCH (09:07)
[2021-05-12] MEDS: FLORASTOR (S. BOULARDII) 250 MG CAP PO SCH (09:08)
[2021-05-12] MEDS: METOPROLOL TARTRATE 25 MG TAB PO SCH ×2 (09:08→21:42)
[2021-05-12] MEDS: HEPARIN SODIUM (PORCINE) 5000 UNITS/ML 1ML VIAL SC SCH ×2 (10:00→21:43)
[2021-05-12] MEDS: DAKINS HALF STR 0.25% (NaHypochlorite) 473 ML TOPICAL SOL TOP SCH ×2 (10:00→21:43)
[2021-05-12] MEDS: SODIUM CHLORIDE 0.9% 1,000 ML IV SCH (12:33)
[2021-05-12 13:00] VITALS: BP 153/77
[2021-05-12 17:00] VITALS: BP 143/71
[2021-05-12] MEDS: ATORVASTATIN 20 MG TAB PO SCH (21:41)
[2021-05-12] MEDS: INSULIN LANTUS (GLARGINE) 1 /0.01ml (100units/ml) SC SCH (21:42)
[2021-05-12 22:00] VITALS: BP 153/77
[2021-05-13] MEDS: MORPHINE SULFATE 4 MG/ML SYR/VIAL IV PRN ×3 (04:25→21:25)
[2021-05-13] MEDS: SODIUM CHLORIDE 0.9% 1,000 ML IV SCH ×2 (04:26→21:23)
[2021-05-13 05:00] VITALS: BP 152/93
[2021-05-13] MEDS: PIPERACILLIN-TAZOB 3.375GM 100 ML IV SCH ×3 (05:22→21:23)
[2021-05-13 06:04] LABS: Basophils # (auto) 0.1 10 ^3/uL (0-0.2); Eosinophils # (auto) 0.3 10 ^3/uL (0-0.8); Eosinophils % (auto) 1.8 % (0.0-7.0); Hemoglobin 7.9 g/dL (13.5-17.5); Lymphocytes # (auto) 0.8 10 ^3/uL (0.4-5.4); Monocytes # (auto) 0.9 10 ^3/uL (0-1.3); Monocytes % (auto) 6.3 % (0.0-12.0)
[2021-05-13 06:07] LABS: Basophils % (auto) 0.7 % (0.0-2.0); Hematocrit 23.2 % (41.0-53.0); Lymphocytes % (auto) 5.4 % (10.0-50.0); Mean Corpuscular Hemoglobin 26.4 pg (28.0-32.0); Mean Corpuscular Volume 77.5 fL (80.0-100.0); Neutrophils # (auto) 12.5 10 ^3/uL (1.6-8.6); Neutrophils % (auto) 85.8 % (37.0-80.0); Red Blood Cells 2.99 10^6/uL (4.5-5.90); Red Cell Distribution Width 17.8 % (11.8-14.3); White Blood Cell 14.6 10^3/uL (4.4-10.8)
[2021-05-13] MEDS: ACCU-CHEK COMFORT CURVE STRIP VI SCH ×4 (06:09→21:24)
[2021-05-13] MEDS: InsuLIN REG 1unit/0.01ml Soln (100units/ml) SC SCH ×4 (06:09→21:20)
[2021-05-13] MEDS: LEVOTHYROXINE SODIUM 100 MCG TAB PO SCH (06:09)
[2021-05-13 06:16] LABS: BUN/Creatinine Ratio 14.7; Calcium 8.4 mg/dL (8.5-10.1); Magnesium 1.8 mg/dL (1.6-2.6); Potassium 3.3 mmol/L (3.5-5.1)
[2021-05-13 09:00] VITALS: BP 169/86
[2021-05-13] MEDS: HEPARIN SODIUM (PORCINE) 5000 UNITS/ML 1ML VIAL SC SCH ×2 (10:00→21:19)
[2021-05-13] MEDS ORDERED: MAGNESIUM SULFATE 1GM/100ML 100 ML IV ONE (10:00)
[2021-05-13] MEDS ORDERED: POTASSIUM EFFERVESENT TAB 25 MEQ PO ONE (10:00)
[2021-05-13] MEDS: DAKINS HALF STR 0.25% (NaHypochlorite) 473 ML TOPICAL SOL TOP SCH ×2 (10:00→21:24)
[2021-05-13] MEDS: ZINC SULFATE 220mg CAP or TAB PO SCH (12:27)
[2021-05-13] MEDS: FLORASTOR (S. BOULARDII) 250 MG CAP PO SCH (12:27)
[2021-05-13] MEDS: ASCORBIC ACID 500 MG TAB PO SCH ×2 (12:27→21:24)
[2021-05-13] MEDS: MULTIPLE VITAMIN TAB PO SCH (12:27)
[2021-05-13] MEDS: METOPROLOL TARTRATE 25 MG TAB PO SCH ×2 (12:44→21:24)
[2021-05-13 13:00] VITALS: BP 187/87
[2021-05-13 17:00] VITALS: BP 167/87
[2021-05-13] MEDS: INSULIN LANTUS (GLARGINE) 1 /0.01ml (100units/ml) SC SCH (21:20)
[2021-05-13] MEDS: ATORVASTATIN 20 MG TAB PO SCH (21:23)
[2021-05-13] MEDS: hydrALAZINE HCL 20 MG/ML VL IV PRN (21:26)
[2021-05-13 22:00] VITALS: BP 151/69
[2021-05-13 23:30] VITALS: BP 145/78
[2021-05-14] VITALS (7 sets, daily range): BP systolic 129–186; BP diastolic 65–86
[2021-05-14] MEDS: HYDROcodone-ACET 5/325MG TAB PO PRN ×2 (01:26→20:39)
[2021-05-14 05:29] LABS: Basophils # (auto) 0.1 10 ^3/uL (0-0.2); Eosinophils # (auto) 0.2 10 ^3/uL (0-0.8); Hemoglobin 7.7 g/dL (13.5-17.5); Lymphocytes # (auto) 0.8 10 ^3/uL (0.4-5.4); Lymphocytes % (auto) 6.5 % (10.0-50.0); Monocytes # (auto) 0.9 10 ^3/uL (0-1.3)
[2021-05-14 05:32] LABS: Basophils % (auto) 0.8 % (0.0-2.0); Eosinophils % (auto) 2.1 % (0.0-7.0); Hematocrit 22.6 % (41.0-53.0); Mean Corpuscular Hemoglobin 25.9 pg (28.0-32.0); Mean Corpuscular Hgb Conc. 34.2 g/dL (32.0-36.0); Mean Corpuscular Volume 75.6 fL (80.0-100.0); Monocytes % (auto) 7.7 % (0.0-12.0); Neutrophils # (auto) 9.8 10 ^3/uL (1.6-8.6); Neutrophils % (auto) 82.9 % (37.0-80.0); Red Blood Cells 2.98 10^6/uL (4.5-5.90); Red Cell Distribution Width 17.7 % (11.8-14.3); White Blood Cell 11.8 10^3/uL (4.4-10.8)
[2021-05-14 05:51] LABS: BUN/Creatinine Ratio 14.5; Calcium 8.2 mg/dL (8.5-10.1); Magnesium 2.1 mg/dL (1.6-2.6); Potassium 3.2 mmol/L (3.5-5.1)
[2021-05-14] MEDS: LEVOTHYROXINE SODIUM 100 MCG TAB PO SCH (05:59)
[2021-05-14] MEDS: PIPERACILLIN-TAZOB 3.375GM 100 ML IV SCH (05:59)
[2021-05-14] MEDS: InsuLIN REG 1unit/0.01ml Soln (100units/ml) SC SCH ×4 (06:00→22:00)
[2021-05-14] MEDS: MORPHINE SULFATE 4 MG/ML SYR/VIAL IV PRN ×3 (06:00→17:02)
[2021-05-14] MEDS: ACCU-CHEK COMFORT CURVE STRIP VI SCH ×4 (06:00→22:43)
[2021-05-14] MEDS: DAKINS HALF STR 0.25% (NaHypochlorite) 473 ML TOPICAL SOL TOP SCH ×2 (10:00→22:43)
[2021-05-14] MEDS: MULTIPLE VITAMIN TAB PO SCH (10:27)
[2021-05-14] MEDS: FLORASTOR (S. BOULARDII) 250 MG CAP PO SCH (10:28)
[2021-05-14] MEDS: ZINC SULFATE 220mg CAP or TAB PO SCH (10:28)
[2021-05-14] MEDS: ASCORBIC ACID 500 MG TAB PO SCH ×2 (10:28→22:40)
[2021-05-14] MEDS: METOPROLOL TARTRATE 25 MG TAB PO SCH ×3 (10:30→23:24)
[2021-05-14] MEDS: HEPARIN SODIUM (PORCINE) 5000 UNITS/ML 1ML VIAL SC SCH ×2 (10:33→22:43)
[2021-05-14] MEDS ORDERED: levoFLOXacin 500 MG TAB PO ONE (11:26)
[2021-05-14] MEDS ORDERED: POTASSIUM EFFERVESENT TAB 25 MEQ PO ONE (11:30)
[2021-05-14] MEDS ORDERED: SACC250C PO (11:41)
[2021-05-14] MEDS ORDERED: LISI20TA28 PO (11:41)
[2021-05-14] MEDS ORDERED: ATO40T PO (11:41)
[2021-05-14] MEDS ORDERED: CLOP75TA28 PO (11:41)
[2021-05-14] MEDS ORDERED: MET25T PO (11:41)
[2021-05-14] MEDS ORDERED: PANT40TA2 PO (11:41)
[2021-05-14] MEDS ORDERED: AMOX500C2 PO (11:41)
[2021-05-14] MEDS ORDERED: DOCU-94 PO (11:41)
[2021-05-14] MEDS ORDERED: LEVO500T31 PO (11:41)
[2021-05-14] MEDS: hydrALAZINE HCL 20 MG/ML VL IV PRN (11:44)
[2021-05-14] MEDS ORDERED: PANTOPRAZOLE 40 MG TAB PO ONE (11:45)
[2021-05-14] MEDS: AMOXICILLIN TRIHYDRATE 250 MG CAP PO SCH ×2 (15:02→22:40)
[2021-05-14] MEDS: INSULIN LANTUS (GLARGINE) 1 /0.01ml (100units/ml) SC SCH (22:00)
[2021-05-14] MEDS: ATORVASTATIN 20 MG TAB PO SCH (22:40)
[2021-05-15] MEDS: HYDROcodone-ACET 5/325MG TAB PO PRN ×2 (01:17→05:37)
[2021-05-15 05:00] VITALS: BP 168/79
[2021-05-15] MEDS: hydrALAZINE HCL 20 MG/ML VL IV PRN (05:37)
[2021-05-15] MEDS: AMOXICILLIN TRIHYDRATE 250 MG CAP PO SCH ×3 (05:38→21:57)
[2021-05-15 05:47] LABS: Basophils # (auto) 0.1 10 ^3/uL (0-0.2); Basophils % (auto) 0.4 % (0.0-2.0); Eosinophils # (auto) 0.2 10 ^3/uL (0-0.8); Eosinophils % (auto) 1.4 % (0.0-7.0); Hematocrit 23.8 % (41.0-53.0); Hemoglobin 7.9 g/dL (13.5-17.5); Lymphocytes # (auto) 0.7 10 ^3/uL (0.4-5.4); Lymphocytes % (auto) 4.8 % (10.0-50.0); Mean Corpuscular Hemoglobin 25.5 pg (28.0-32.0); Mean Corpuscular Volume 77.2 fL (80.0-100.0); Monocytes # (auto) 0.7 10 ^3/uL (0-1.3); Monocytes % (auto) 5.3 % (0.0-12.0); Neutrophils # (auto) 12.2 10 ^3/uL (1.6-8.6); Neutrophils % (auto) 88.1 % (37.0-80.0); Red Blood Cells 3.09 10^6/uL (4.5-5.90); Red Cell Distribution Width 17.7 % (11.8-14.3); White Blood Cell 13.9 10^3/uL (4.4-10.8)
[2021-05-15 06:19] LABS: Cholesterol 147 mg/dL (< 200)
[2021-05-15 06:22] LABS: HDL Cholesterol 38 mg/dL (40-59); LDL Cholesterol 102 mg/dL (< 100); Triglycerides 107 mg/dL (< 150)
[2021-05-15 06:33] LABS: BUN/Creatinine Ratio 14.7; Calcium 8.3 mg/dL (8.5-10.1)
[2021-05-15] MEDS: LEVOTHYROXINE SODIUM 100 MCG TAB PO SCH (07:14)
[2021-05-15] MEDS: ACCU-CHEK COMFORT CURVE STRIP VI SCH ×4 (07:15→21:58)
[2021-05-15] MEDS: InsuLIN REG 1unit/0.01ml Soln (100units/ml) SC SCH ×4 (07:16→22:00)
[2021-05-15 09:06] VITALS: BP 147/74
[2021-05-15] MEDS ORDERED: HEPARIN SODIUM (PORCINE) 5000 UNITS/ML 1ML VIAL ONE (09:18)
[2021-05-15] MEDS: MORPHINE SULFATE 4 MG/ML SYR/VIAL IV PRN ×3 (09:30→20:09)
[2021-05-15] MEDS: ZINC SULFATE 220mg CAP or TAB PO SCH (09:30)
[2021-05-15] MEDS: MULTIPLE VITAMIN TAB PO SCH (09:31)
[2021-05-15] MEDS: CLOPIDOGREL BISULFATE 75 MG TAB PO SCH (09:31)
[2021-05-15] MEDS: PANTOPRAZOLE 40 MG TAB PO SCH (09:32)
[2021-05-15] MEDS: FLORASTOR (S. BOULARDII) 250 MG CAP PO SCH (09:33)
[2021-05-15] MEDS: ASCORBIC ACID 500 MG TAB PO SCH ×2 (09:34→21:58)
[2021-05-15] MEDS: LISINOPRIL 20 MG TAB PO SCH (09:34)
[2021-05-15] MEDS: METOPROLOL TARTRATE 25 MG TAB PO SCH ×2 (09:35→22:30)
[2021-05-15] MEDS: levoFLOXacin 250 MG TAB PO SCH (09:36)
[2021-05-15] MEDS: HEPARIN SODIUM (PORCINE) 5000 UNITS/ML 1ML VIAL SC SCH ×2 (09:42→22:00)
[2021-05-15] MEDS: DAKINS HALF STR 0.25% (NaHypochlorite) 473 ML TOPICAL SOL TOP SCH ×2 (09:46→22:30)
[2021-05-15 13:00] VITALS: BP 159/76
[2021-05-15 16:58] VITALS: BP 139/73
[2021-05-15] MEDS: ATORVASTATIN 20 MG TAB PO SCH (21:57)
[2021-05-15 22:00] VITALS: BP 148/65
[2021-05-15] MEDS: INSULIN LANTUS (GLARGINE) 1 /0.01ml (100units/ml) SC SCH (22:01)
[2021-05-16] VITALS (7 sets, daily range): BP systolic 141–158; BP diastolic 67–82
[2021-05-16] MEDS: MORPHINE SULFATE 4 MG/ML SYR/VIAL IV PRN ×4 (01:04→15:28)
[2021-05-16 06:35] LABS: BUN/Creatinine Ratio 16.2; Calcium 7.6 mg/dL (8.5-10.1)
[2021-05-16] MEDS: hydrALAZINE HCL 20 MG/ML VL IV PRN (06:50)
[2021-05-16] MEDS: ACCU-CHEK COMFORT CURVE STRIP VI SCH ×3 (06:51→17:58)
[2021-05-16] MEDS: InsuLIN REG 1unit/0.01ml Soln (100units/ml) SC SCH ×3 (06:51→17:00)
[2021-05-16] MEDS: AMOXICILLIN TRIHYDRATE 250 MG CAP PO SCH ×2 (06:51→15:28)
[2021-05-16] MEDS: LEVOTHYROXINE SODIUM 100 MCG TAB PO SCH (06:51)
[2021-05-16] MEDS: DEXTROSE (50%) 50ML SYRG IV PRN ×2 (06:52→17:57)
[2021-05-16 07:32] LABS: Basophils # (auto) 0.1 10 ^3/uL (0-0.2); Eosinophils # (auto) 0.3 10 ^3/uL (0-0.8); Hematocrit 21.1 % (41.0-53.0); Lymphocytes # (auto) 1.1 10 ^3/uL (0.4-5.4); Monocytes # (auto) 0.8 10 ^3/uL (0-1.3); Monocytes % (auto) 6.3 % (0.0-12.0)
[2021-05-16 07:33] LABS: Basophils % (auto) 0.5 % (0.0-2.0); Eosinophils % (auto) 2.4 % (0.0-7.0); Lymphocytes % (auto) 8.3 % (10.0-50.0); Mean Corpuscular Hemoglobin 25.2 pg (28.0-32.0); Mean Corpuscular Hgb Conc. 32.7 g/dL (32.0-36.0); Neutrophils # (auto) 10.8 10 ^3/uL (1.6-8.6); Neutrophils % (auto) 82.5 % (37.0-80.0); Red Blood Cells 2.75 10^6/uL (4.5-5.90); Red Cell Distribution Width 17.7 % (11.8-14.3); White Blood Cell 13.2 10^3/uL (4.4-10.8)
[2021-05-16 07:36] LABS: Hemoglobin 6.9 g/dL (13.5-17.5)
[2021-05-16] MEDS ORDERED: diphenhdrAMINE HCL 25 MG CAP PO PRN (08:30)
[2021-05-16] MEDS ORDERED: HEPARIN SODIUM (PORCINE) 5000 UNITS/ML 1ML VIAL ONE (09:44)
[2021-05-16] MEDS: ZINC SULFATE 220mg CAP or TAB PO SCH (10:29)
[2021-05-16] MEDS: MULTIPLE VITAMIN TAB PO SCH (10:29)
[2021-05-16] MEDS: ASCORBIC ACID 500 MG TAB PO SCH (10:29)
[2021-05-16] MEDS: METOPROLOL TARTRATE 25 MG TAB PO SCH (10:31)
[2021-05-16] MEDS: FLORASTOR (S. BOULARDII) 250 MG CAP PO SCH (10:31)
[2021-05-16] MEDS: levoFLOXacin 250 MG TAB PO SCH (10:31)
[2021-05-16] MEDS: LISINOPRIL 20 MG TAB PO SCH (10:31)
[2021-05-16] MEDS: CLOPIDOGREL BISULFATE 75 MG TAB PO SCH (10:32)
[2021-05-16] MEDS: PANTOPRAZOLE 40 MG TAB PO SCH (10:32)
[2021-05-16] MEDS: HEPARIN SODIUM (PORCINE) 5000 UNITS/ML 1ML VIAL SC SCH (10:34)
[2021-05-16] MEDS: DAKINS HALF STR 0.25% (NaHypochlorite) 473 ML TOPICAL SOL TOP SCH (10:37)
[2021-05-16] MEDS ORDERED: POTASSIUM CHL 20 Meq TABLET PO ONE (13:00)
== END 2021-05-16 18:00 | DRG 853 ==
LOC: EDBD 17:51 → ER 17:51 → OVERFLOW 23:56 → WEST WING 05-03 05:15
PROVIDERS: ADMIT Nurse Practitioner Family; ATTEND Internal Medicine
PROC: B41GYZZ Fluoroscopy of Left Lower Extremity Arteries using Other Contrast (ICD-10-PCS; 2021-05-04)
PROC: B41FYZZ Fluoroscopy of Right Lower Extremity Arteries using Other Contrast (ICD-10-PCS; 2021-05-04)
PROC: 0QBM0ZZ Excision of Left Tarsal, Open Approach (ICD-10-PCS; principal; 2021-05-04 12:28)
PROC: 047N3ZZ Dilation of Left Popliteal Artery, Percutaneous Approach (ICD-10-PCS; 2021-05-05)
PROC: 047L3ZZ Dilation of Left Femoral Artery, Percutaneous Approach (ICD-10-PCS; 2021-05-05)
PROC: 04CL3ZZ Extirpation of Matter from Left Femoral Artery, Percutaneous Approach (ICD-10-PCS; 2021-05-05)
PROC: 04CN3ZZ Extirpation of Matter from Left Popliteal Artery, Percutaneous Approach (ICD-10-PCS; 2021-05-05)
PROC: 30233N1 Transfusion of Nonautologous Red Blood Cells into Peripheral Vein, Percutaneous Approach (ICD-10-PCS; 2021-05-06)
PROC: 0Y6J0Z1 Detachment at Left Lower Leg, High, Open Approach (ICD-10-PCS; 2021-05-09)
DX: A41.81 Sepsis due to Enterococcus (principal); A48.0 Gas gangrene; N17.0 Acute kidney failure with tubular necrosis; M86.8X7 Other osteomyelitis, ankle and foot; E11.52 Type 2 diabetes mellitus with diabetic peripheral angiopathy with gangrene; I13.0 Hypertensive heart and chronic kidney disease with heart failure and stage 1 through stage 4 chronic kidney disease, or unspecified chronic kidney disease; I48.20 Chronic atrial fibrillation, unspecified; T82.856A Stenosis of peripheral vascular stent, initial encounter; E88.09 Other disorders of plasma-protein metabolism, not elsewhere classified; D64.9 Anemia, unspecified; E78.5 Hyperlipidemia, unspecified; E03.9 Hypothyroidism, unspecified; E11.22 Type 2 diabetes mellitus with diabetic chronic kidney disease; E11.621 Type 2 diabetes mellitus with foot ulcer; Z20.822 Contact with and (suspected) exposure to COVID-19; E11.69 Type 2 diabetes mellitus with other specified complication; E87.6 Hypokalemia; F17.210 Nicotine dependence, cigarettes, uncomplicated; I50.9 Heart failure, unspecified; N18.9 Chronic kidney disease, unspecified; E11.65 Type 2 diabetes mellitus with hyperglycemia; N40.1 Benign prostatic hyperplasia with lower urinary tract symptoms; Y83.8 Other surgical procedures as the cause of abnormal reaction of the patient, or of later complication, without mention of misadventure at the time of the procedure; R33.8 Other retention of urine; F41.9 Anxiety disorder, unspecified; N50.89 Other specified disorders of the male genital organs; T50.8X5A Adverse effect of diagnostic agents, initial encounter; Y92.89 Other specified places as the place of occurrence of the external cause; Z79.02 Long term (current) use of antithrombotics/antiplatelets; Z89.511 Acquired absence of right leg below knee
CPT/HCPCS: 36415; 37225; 71045; 73700; 73718; 74176; 75716; 76705; 76775; 80048; 80053; 80061; 80202; 82565; 82962; 83036; 83605; 83735; 84443; 85014; 85018; 85025; 85610; 85652; 85730; 86850; 86900; 86901; 86920; 87040; 87070; 87075; 87077; 87186; 87205; 87426; 93005; 93926; 96365; 96366; 96367; 96375; 96376; 97163; 97530; 99152; 99153; G0378; J0690; J1815; J2001; J2250; J2405; J2543; J2704; J3490; P9047; Q9967

== ENCOUNTER 2021-06-20 01:46 | Inpatient (IN) | payer MEDICARE, OTHER ==
[~2021-06-20] VITALS: Ht 152.4 cm; Wt 69.2 kg
[~2021-06-20 01:46] MED LIST changes: +AMOX500C2 PO; -ASPI1CHW15 PO; -ASPI1TAB20 PO; +ATO40T PO; -ATOR-47 PO; +DOCU-94 PO; +LISI20TA28 PO; -LISI40TA11 PO; +MET25T PO; -OMEP-434 PO; +PANT40TA2 PO; +SACC250C PO
[2021-06-20 02:56] LABS: Basophils # (auto) 0.1 10 ^3/uL (0-0.2); Basophils % (auto) 1.1 % (0.0-2.0); Eosinophils # (auto) 0.4 10 ^3/uL (0-0.8); Eosinophils % (auto) 3.4 % (0.0-7.0); Hematocrit 26.5 % (41.0-53.0); Hemoglobin 8.8 g/dL (13.5-17.5); Lymphocytes # (auto) 1.3 10 ^3/uL (0.4-5.4); Lymphocytes % (auto) 12.5 % (10.0-50.0); Mean Corpuscular Hemoglobin 27.6 pg (28.0-32.0); Mean Corpuscular Hgb Conc. 33.3 g/dL (32.0-36.0); Mean Corpuscular Volume 82.9 fL (80.0-100.0); Monocytes # (auto) 0.8 10 ^3/uL (0-1.3); Monocytes % (auto) 7.8 % (0.0-12.0); Neutrophils % (auto) 75.2 % (37.0-80.0); Nucleated Red Blood Cells % 0.1 %; Red Cell Distribution Width 19.2 % (11.8-14.3); White Blood Cell 10.7 10^3/uL (4.4-10.8)
[2021-06-20 03:12] LABS: INR 0.99 (0.9-1.15); Partial Thromboplastin Time 23.8 sec (23.6-33.0)
[2021-06-20] MEDS ORDERED: LIDOCAINE 2% JELLY 11ml (GLYDO) ONE (05:56)
[2021-06-20] MEDS ORDERED: LIDOCAINE 2% JELLY 11ml (GLYDO) UR ONE (06:00)
[2021-06-20 06:21] LABS: Urine Bacteria FEW /hpf (None Seen); Urine Blood 3+ /uL (Negative); Urine Specific Gravity 1.016 (1.001-1.035); Urine WBC 331 /hpf (0 - 3); Urine WBC Clumps PRESENT /hpf (None Seen)
[2021-06-20] MEDS ORDERED: DEXTROSE (50%) 50ML SYRG IV PRN (08:45)
[2021-06-20] MEDS ORDERED: traMADol HCL 50 MG TAB PO PRN (08:45)
[2021-06-20] MEDS ORDERED: ONDANSETRON HCL 4 MG/2 ML VIAL IV PRN (08:45)
[2021-06-20] MEDS ORDERED: ACETAMINOPHEN 500 MG TAB PO PRN (08:45)
[2021-06-20] MEDS ORDERED: DOCUSATE SOD 100 MG CAP PO PRN (09:00)
[2021-06-20] MEDS ORDERED: LABETALOL HCL 5 MG/ML 4ML SYRINGE IV PRN (09:00)
[2021-06-20] MEDS ORDERED: cloNIDine HCL 0.1 MG TAB PO PRN (09:00)
[2021-06-20 09:21] LABS: Potassium 3.8 mmol/L (3.5-5.1)
[2021-06-20 09:38] LABS: Albumin 2.4 g/dL (3.4-5.0); BUN/Creatinine Ratio 21.1; Bilirubin, Total 0.4 mg/dL (0.2-1.0); Calcium 8.1 mg/dL (8.5-10.1); Total Protein 6.6 g/dL (6.4-8.2)
[2021-06-20] MEDS ORDERED: MORPHINE SULFATE INJECTION 2 MG/ML SYRG IV PRN (09:45)
[2021-06-20] MEDS ORDERED: NITROGLYCERIN 0.4 MG SL TAB SL PRN (09:45)
[2021-06-20] MEDS: cefTRIAXone 1GM/50ML D5W 50 ML IV SCH (10:15)
[2021-06-20] MEDS: ATORVASTATIN 20 MG TAB PO SCH (10:15)
[2021-06-20] MEDS: METOPROLOL TARTRATE 25 MG TAB PO SCH ×2 (10:15→22:00)
[2021-06-20] MEDS: LISINOPRIL 20 MG TAB PO SCH (10:16)
[2021-06-20] MEDS: PANTOPRAZOLE 40 MG TAB PO SCH (10:16)
[2021-06-20] MEDS: SODIUM CHLORIDE 0.9% 1,000 ML IV SCH ×2 (10:17→18:45)
[2021-06-20] MEDS: InsuLIN REG 1unit/0.01ml Soln (100units/ml) SC SCH ×3 (11:45→22:00)
[2021-06-20] MEDS: ACCU-CHEK COMFORT CURVE STRIP VI SCH ×3 (11:45→22:00)
[2021-06-20 12:31] LABS: Hemoglobin 8.7 g/dL (13.5-17.5)
[2021-06-20] MEDS ORDERED: ZOLPIDEM TARTRATE 5 MG TAB PO PRN (21:00)
[2021-06-20] MEDS: ALFUZOSIN 10 MG PO SCH (22:00)
[2021-06-20 22:23] LABS: Hematocrit 25.7 % (41.0-53.0); Hemoglobin 8.3 g/dL (13.5-17.5)
[2021-06-21] MEDS: MORPHINE SULFATE INJECTION 2 MG/ML SYRG IV PRN ×4 (01:10→23:00)
[2021-06-21 02:20] LABS: Hemoglobin 8.5 g/dL (13.5-17.5)
[2021-06-21] MEDS: SODIUM CHLORIDE 0.9% 1,000 ML IV SCH ×2 (04:45→14:45)
[2021-06-21 05:01] LABS: Lymphocytes # (auto) 0.9 10 ^3/uL (0.4-5.4)
[2021-06-21 05:03] LABS: Basophils # (auto) 0.1 10 ^3/uL (0-0.2); Basophils % (auto) 0.5 % (0.0-2.0); Eosinophils # (auto) 0.5 10 ^3/uL (0-0.8); Eosinophils % (auto) 4.1 % (0.0-7.0); Hematocrit 24.7 % (41.0-53.0); Hemoglobin 8.2 g/dL (13.5-17.5); Mean Corpuscular Hemoglobin 27.5 pg (28.0-32.0); Mean Corpuscular Hgb Conc. 33.3 g/dL (32.0-36.0); Mean Corpuscular Volume 82.6 fL (80.0-100.0); Monocytes # (auto) 0.9 10 ^3/uL (0-1.3); Monocytes % (auto) 7.4 % (0.0-12.0); Neutrophils # (auto) 9.4 10 ^3/uL (1.6-8.6); Red Cell Distribution Width 18.9 % (11.8-14.3); White Blood Cell 11.7 10^3/uL (4.4-10.8)
[2021-06-21 05:26] LABS: BUN/Creatinine Ratio 25.6; Calcium 8.2 mg/dL (8.5-10.1); Potassium 4.2 mmol/L (3.5-5.1)
[2021-06-21 05:29] LABS: Bilirubin, Total 0.6 mg/dL (0.2-1.0); Total Protein 5.7 g/dL (6.4-8.2)
[2021-06-21] MEDS: INSULIN LANTUS (GLARGINE) 1 /0.01ml (100units/ml) SC SCH (06:34)
[2021-06-21] MEDS: ACCU-CHEK COMFORT CURVE STRIP VI SCH ×4 (06:34→23:04)
[2021-06-21] MEDS: LEVOTHYROXINE SODIUM 100 MCG TAB PO SCH (06:51)
[2021-06-21] MEDS: InsuLIN REG 1unit/0.01ml Soln (100units/ml) SC SCH ×4 (07:19→23:08)
[2021-06-21] MEDS: cefTRIAXone 1GM/50ML D5W 50 ML IV SCH (09:16)
[2021-06-21] MEDS: METOPROLOL TARTRATE 25 MG TAB PO SCH ×2 (09:59→23:04)
[2021-06-21] MEDS: ATORVASTATIN 20 MG TAB PO SCH (09:59)
[2021-06-21] MEDS: PANTOPRAZOLE 40 MG TAB PO SCH (10:00)
[2021-06-21] MEDS: LISINOPRIL 20 MG TAB PO SCH (10:07)
[2021-06-21 15:00] VITALS: BP 132/71
[2021-06-21 17:05] VITALS: BP 132/71
[2021-06-21 22:00] VITALS: BP 105/54
[2021-06-21] MEDS: ALFUZOSIN 10 MG PO SCH (22:00)
[2021-06-22 05:00] VITALS: BP 143/86
[2021-06-22 05:43] LABS: Basophils # (auto) 0.1 10 ^3/uL (0-0.2); Eosinophils # (auto) 0.5 10 ^3/uL (0-0.8); Hematocrit 25.5 % (41.0-53.0); Monocytes # (auto) 0.7 10 ^3/uL (0-1.3); Neutrophils # (auto) 7.2 10 ^3/uL (1.6-8.6); White Blood Cell 9.3 10^3/uL (4.4-10.8)
[2021-06-22 05:45] LABS: Basophils % (auto) 0.7 % (0.0-2.0); Eosinophils % (auto) 5.6 % (0.0-7.0); Hemoglobin 8.4 g/dL (13.5-17.5); Lymphocytes # (auto) 0.7 10 ^3/uL (0.4-5.4); Lymphocytes % (auto) 8.1 % (10.0-50.0); Mean Corpuscular Hemoglobin 27.4 pg (28.0-32.0); Mean Corpuscular Hgb Conc. 32.9 g/dL (32.0-36.0); Mean Corpuscular Volume 83.2 fL (80.0-100.0); Monocytes % (auto) 7.4 % (0.0-12.0); Neutrophils % (auto) 78.2 % (37.0-80.0); Red Blood Cells 3.06 10^6/uL (4.5-5.90); Red Cell Distribution Width 18.9 % (11.8-14.3)
[2021-06-22 05:57] LABS: INR 1.05 (0.9-1.15); Partial Thromboplastin Time 26.5 sec (23.6-33.0)
[2021-06-22 05:58] LABS: Calcium 7.8 mg/dL (8.5-10.1); Magnesium 1.6 mg/dL (1.6-2.6); Potassium 4.3 mmol/L (3.5-5.1); Uric Acid 5.4 mg/dL (3.5-7.2)
[2021-06-22 06:01] LABS: Bilirubin, Total 0.5 mg/dL (0.2-1.0); Total Protein 5.4 g/dL (6.4-8.2)
[2021-06-22] MEDS: MORPHINE SULFATE INJECTION 2 MG/ML SYRG IV PRN ×4 (06:07→20:49)
[2021-06-22] MEDS: LEVOTHYROXINE SODIUM 100 MCG TAB PO SCH (06:50)
[2021-06-22] MEDS: InsuLIN REG 1unit/0.01ml Soln (100units/ml) SC SCH ×4 (06:51→22:00)
[2021-06-22] MEDS: INSULIN LANTUS (GLARGINE) 1 /0.01ml (100units/ml) SC SCH ×2 (06:52→22:00)
[2021-06-22] MEDS: ACCU-CHEK COMFORT CURVE STRIP VI SCH ×4 (06:53→22:14)
[2021-06-22] MEDS: SODIUM CHLORIDE 0.9% 1,000 ML IV SCH ×2 (06:59→11:40)
[2021-06-22 08:56] VITALS: BP 150/78
[2021-06-22] MEDS: METOPROLOL TARTRATE 25 MG TAB PO SCH ×2 (10:32→22:19)
[2021-06-22] MEDS: cefTRIAXone 1GM/50ML D5W 50 ML IV SCH (10:32)
[2021-06-22] MEDS: ATORVASTATIN 20 MG TAB PO SCH (10:32)
[2021-06-22] MEDS: LISINOPRIL 20 MG TAB PO SCH (10:33)
[2021-06-22] MEDS: PANTOPRAZOLE 40 MG TAB PO SCH (10:33)
[2021-06-22] MEDS ORDERED: NIFEdipine ER 30 MG TAB PO ONE (10:45)
[2021-06-22] MEDS ORDERED: hydrALAZINE HCL 20 MG/ML VL IV PRN (10:45)
[2021-06-22 13:00] VITALS: BP 135/73
[2021-06-22 17:20] VITALS: BP 124/67
[2021-06-22 22:00] VITALS: BP 109/51
[2021-06-22] MEDS: ALFUZOSIN 10 MG PO SCH (22:00)
[2021-06-23] MEDS: SODIUM CHLORIDE 0.9% 1,000 ML IV SCH ×2 (00:08→10:11)
[2021-06-23] MEDS: MORPHINE SULFATE INJECTION 2 MG/ML SYRG IV PRN ×2 (01:00→20:31)
[2021-06-23 05:00] VITALS: BP 108/62
[2021-06-23] MEDS: ACCU-CHEK COMFORT CURVE STRIP VI SCH ×2 (06:35→22:23)
[2021-06-23] MEDS: InsuLIN REG 1unit/0.01ml Soln (100units/ml) SC SCH ×4 (06:40→22:27)
[2021-06-23] MEDS: LEVOTHYROXINE SODIUM 100 MCG TAB PO SCH (07:36)
[2021-06-23] MEDS: LEVOTHYROXINE SODIUM 25 MCG TAB PO SCH (07:36)
[2021-06-23 09:00] VITALS: BP 126/65
[2021-06-23 09:26] LABS: Basophils # (auto) 0 10 ^3/uL (0-0.2); Basophils % (auto) 0.5 % (0.0-2.0); Eosinophils # (auto) 0.6 10 ^3/uL (0-0.8); Eosinophils % (auto) 6.7 % (0.0-7.0); Hematocrit 24.3 % (41.0-53.0); Hemoglobin 8.1 g/dL (13.5-17.5); Lymphocytes # (auto) 0.8 10 ^3/uL (0.4-5.4); Lymphocytes % (auto) 9.7 % (10.0-50.0); Mean Corpuscular Hemoglobin 27.7 pg (28.0-32.0); Mean Corpuscular Hgb Conc. 33.5 g/dL (32.0-36.0); Mean Corpuscular Volume 82.7 fL (80.0-100.0); Monocytes # (auto) 0.7 10 ^3/uL (0-1.3); Monocytes % (auto) 7.7 % (0.0-12.0); Neutrophils # (auto) 6.5 10 ^3/uL (1.6-8.6); Neutrophils % (auto) 75.4 % (37.0-80.0); Nucleated Red Blood Cells % 0.1 %; Red Blood Cells 2.94 10^6/uL (4.5-5.90); White Blood Cell 8.6 10^3/uL (4.4-10.8)
[2021-06-23 09:29] LABS: Magnesium 1.9 mg/dL (1.6-2.6); Potassium 4.2 mmol/L (3.5-5.1)
[2021-06-23 09:31] LABS: INR 1.02 (0.9-1.15); Partial Thromboplastin Time 25.6 sec (23.6-33.0)
[2021-06-23 09:38] LABS: Bilirubin, Total 0.3 mg/dL (0.2-1.0); Phosphorus 2.8 mg/dL (2.5-4.90); Total Protein 5.4 g/dL (6.4-8.2)
[2021-06-23] MEDS: cefTRIAXone 1GM/50ML D5W 50 ML IV SCH (09:57)
[2021-06-23] MEDS: ATORVASTATIN 20 MG TAB PO SCH (09:57)
[2021-06-23] MEDS: METOPROLOL TARTRATE 25 MG TAB PO SCH ×2 (09:58→22:26)
[2021-06-23] MEDS: PANTOPRAZOLE 40 MG TAB PO SCH (09:58)
[2021-06-23] MEDS: LISINOPRIL 20 MG TAB PO SCH (10:00)
[2021-06-23] MEDS: NIFEdipine ER 30 MG TAB PO SCH (10:01)
[2021-06-23 13:00] VITALS: BP 131/71
[2021-06-23] MEDS ORDERED: ONDANSETRON HCL 4 MG/2 ML VIAL ONE (13:23)
[2021-06-23] MEDS ORDERED: MIDAZOLAM HCL 2MG/2ML 2ml VIAL (1mg/ml) ONE (13:23)
[2021-06-23] MEDS ORDERED: LIDOCAINE 2% (LOCAL ANESTH.) PF 5ml SDV ONE (13:23)
[2021-06-23] MEDS ORDERED: fentaNYL CITRATE 100 MCG/2 ML VL ONE ×2 (13:23→14:11)
[2021-06-23] MEDS ORDERED: PROPOFOL 10 MG/ML 20 ML IV ONE (13:23)
[2021-06-23] MEDS ORDERED: ROCURONIUM 10MG/ML 10ML VIAL IV ONE (13:24)
[2021-06-23] MEDS ORDERED: GENTAMICIN SULF 80 MG/2 ML VIAL ONE (14:09)
[2021-06-23] MEDS ORDERED: ePHEDrine SULFATE 50 MG/ML AMP ONE (14:43)
[2021-06-23] MEDS ORDERED: ONDANSETRON HCL 4 MG/2 ML VIAL IV PRN (14:45)
[2021-06-23] MEDS ORDERED: HYDROmorphone HCL 2 MG/ML VL IV PRN (14:45)
[2021-06-23 22:00] VITALS: BP 147/70
[2021-06-23] MEDS: ALFUZOSIN 10 MG PO SCH (22:00)
[2021-06-23] MEDS: INSULIN LANTUS (GLARGINE) 1 /0.01ml (100units/ml) SC SCH (22:24)
[2021-06-24] MEDS: SODIUM CHLORIDE 0.9% 1,000 ML IV SCH ×2 (02:45→15:00)
[2021-06-24] MEDS: MORPHINE SULFATE INJECTION 2 MG/ML SYRG IV PRN ×3 (04:37→19:51)
[2021-06-24] MEDS: LEVOTHYROXINE SODIUM 100 MCG TAB PO SCH (06:47)
[2021-06-24] MEDS: LEVOTHYROXINE SODIUM 25 MCG TAB PO SCH (06:48)
[2021-06-24] MEDS: ACCU-CHEK COMFORT CURVE STRIP VI SCH ×4 (06:48→21:29)
[2021-06-24] MEDS: InsuLIN REG 1unit/0.01ml Soln (100units/ml) SC SCH ×4 (06:49→21:21)
[2021-06-24] MEDS: INSULIN LANTUS (GLARGINE) 1 /0.01ml (100units/ml) SC SCH ×2 (06:50→21:28)
[2021-06-24 07:06] LABS: Magnesium 1.5 mg/dL (1.6-2.6); Potassium 4.3 mmol/L (3.5-5.1)
[2021-06-24 07:09] LABS: BUN/Creatinine Ratio 15.7
[2021-06-24 07:10] LABS: Basophils # (auto) 0.1 10 ^3/uL (0-0.2); Eosinophils # (auto) 0.6 10 ^3/uL (0-0.8); Eosinophils % (auto) 6.6 % (0.0-7.0); Hemoglobin 8.2 g/dL (13.5-17.5); Lymphocytes # (auto) 0.9 10 ^3/uL (0.4-5.4); Lymphocytes % (auto) 9.3 % (10.0-50.0); Mean Corpuscular Hemoglobin 27.5 pg (28.0-32.0); Neutrophils # (auto) 7.1 10 ^3/uL (1.6-8.6); Red Cell Distribution Width 18.6 % (11.8-14.3); White Blood Cell 9.3 10^3/uL (4.4-10.8)
[2021-06-24 07:12] LABS: Basophils % (auto) 0.7 % (0.0-2.0); Hematocrit 24.5 % (41.0-53.0); Mean Corpuscular Hgb Conc. 33.3 g/dL (32.0-36.0); Mean Corpuscular Volume 82.8 fL (80.0-100.0); Monocytes # (auto) 0.6 10 ^3/uL (0-1.3); Neutrophils % (auto) 76.4 % (37.0-80.0); Nucleated Red Blood Cells % 0.2 %; Red Blood Cells 2.96 10^6/uL (4.5-5.90)
[2021-06-24 09:00] VITALS: BP 115/70
[2021-06-24] MEDS: BELLADONNA ALKAL/OPIUM (16.2/30MG) RECT SUPP PR SCH (10:00)
[2021-06-24] MEDS: ATORVASTATIN 20 MG TAB PO SCH (10:01)
[2021-06-24] MEDS: cefTRIAXone 1GM/50ML D5W 50 ML IV SCH (10:01)
[2021-06-24] MEDS: PANTOPRAZOLE 40 MG TAB PO SCH (10:01)
[2021-06-24] MEDS: METOPROLOL TARTRATE 25 MG TAB PO SCH ×2 (10:02→21:21)
[2021-06-24] MEDS: LISINOPRIL 20 MG TAB PO SCH (10:03)
[2021-06-24] MEDS: NIFEdipine ER 30 MG TAB PO SCH (10:03)
[2021-06-24 13:00] VITALS: BP 112/65
[2021-06-24] MEDS: MAGNESIUM SULFATE 1GM/100ML 100 ML IV SCH ×2 (14:48→15:30)
[2021-06-24 17:11] VITALS: BP 114/62
[2021-06-24] MEDS: ALFUZOSIN 10 MG PO SCH (21:20)
[2021-06-24 22:00] VITALS: BP 135/73
[2021-06-25] MEDS: MORPHINE SULFATE INJECTION 2 MG/ML SYRG IV PRN (03:15)
[2021-06-25 05:00] VITALS: BP 111/65
[2021-06-25 05:46] LABS: Hemoglobin 8.3 g/dL (13.5-17.5)
[2021-06-25 05:48] LABS: Hematocrit 24.4 % (41.0-53.0)
[2021-06-25 06:06] LABS: Magnesium 2.4 mg/dL (1.6-2.6); Potassium 4.1 mmol/L (3.5-5.1)
[2021-06-25] MEDS: LEVOTHYROXINE SODIUM 100 MCG TAB PO SCH (06:16)
[2021-06-25] MEDS: LEVOTHYROXINE SODIUM 25 MCG TAB PO SCH (06:18)
[2021-06-25] MEDS: ACCU-CHEK COMFORT CURVE STRIP VI SCH ×2 (06:18→11:30)
[2021-06-25] MEDS: InsuLIN REG 1unit/0.01ml Soln (100units/ml) SC SCH ×2 (06:24→11:30)
[2021-06-25] MEDS: INSULIN LANTUS (GLARGINE) 1 /0.01ml (100units/ml) SC SCH (06:24)
[2021-06-25 09:00] VITALS: BP 112/63
[2021-06-25] MEDS: cefTRIAXone 1GM/50ML D5W 50 ML IV SCH (09:00)
[2021-06-25] MEDS: BELLADONNA ALKAL/OPIUM (16.2/30MG) RECT SUPP PR SCH (10:00)
[2021-06-25] MEDS: LISINOPRIL 20 MG TAB PO SCH (10:00)
[2021-06-25] MEDS: PANTOPRAZOLE 40 MG TAB PO SCH (10:00)
[2021-06-25] MEDS: ATORVASTATIN 20 MG TAB PO SCH (10:00)
[2021-06-25] MEDS: METOPROLOL TARTRATE 25 MG TAB PO SCH (10:00)
[2021-06-25] MEDS: SODIUM CHLORIDE 0.9% 1,000 ML IV SCH (11:00)
[2021-06-25] MEDS ORDERED: LEVO500T31 PO (12:02)
[2021-06-25 12:09] VITALS: BP 112/63
== END 2021-06-25 13:00 | disposition home health service (06) | DRG 713 ==
LOC: EDUNIT# 01:46 → ER 01:46 → EDBD 01:46 → TELE 09:35 → TELE-WESTW 06-21 12:46 → WEST WING 06-22 14:11
PROVIDERS: ADMIT Internal Medicine; ATTEND Internal Medicine
PROC: 0VT08ZZ Resection of Prostate, Via Natural or Artificial Opening Endoscopic (ICD-10-PCS; principal; 2021-06-23 13:30)
DX: N40.1 Benign prostatic hyperplasia with lower urinary tract symptoms (principal); N17.0 Acute kidney failure with tubular necrosis; N13.8 Other obstructive and reflux uropathy; R31.0 Gross hematuria; E11.51 Type 2 diabetes mellitus with diabetic peripheral angiopathy without gangrene; E11.22 Type 2 diabetes mellitus with diabetic chronic kidney disease; E86.0 Dehydration; I16.0 Hypertensive urgency; E11.65 Type 2 diabetes mellitus with hyperglycemia; E03.9 Hypothyroidism, unspecified; E78.5 Hyperlipidemia, unspecified; D63.8 Anemia in other chronic diseases classified elsewhere; E78.00 Pure hypercholesterolemia, unspecified; E83.42 Hypomagnesemia; T36.95XA Adverse effect of unspecified systemic antibiotic, initial encounter; N18.2 Chronic kidney disease, stage 2 (mild); I13.10 Hypertensive heart and chronic kidney disease without heart failure, with stage 1 through stage 4 chronic kidney disease, or unspecified chronic kidney disease; E11.40 Type 2 diabetes mellitus with diabetic neuropathy, unspecified; E11.21 Type 2 diabetes mellitus with diabetic nephropathy; Z90.79 Acquired absence of other genital organ(s); Z89.512 Acquired absence of left leg below knee; Z89.511 Acquired absence of right leg below knee
CPT/HCPCS: 36415; 71046; 76775; 80048; 80053; 81001; 82306; 82962; 83036; 83735; 83880; 84100; 84132; 84443; 84550; 85014; 85018; 85025; 85610; 85730; 87086; 87088; 87186; 87426; 96374; G0378; J0696; J1815; J2001; J2250; J2405; J2704

== ENCOUNTER 2021-08-24 09:19 | Inpatient (IN) | payer MEDICARE, OTHER ==
[~2021-08-24] VITALS: Ht 154.9 cm; Wt 56.3 kg
[2021-08-24 11:16] LABS: Basophils # (auto) 0.1 10 ^3/uL (0-0.2); Basophils % (auto) 0.3 % (0.0-2.0); Eosinophils # (auto) 0.1 10 ^3/uL (0-0.8); Eosinophils % (auto) 0.2 % (0.0-7.0); Hematocrit 33.2 % (41.0-53.0); Lymphocytes % (auto) 4.2 % (10.0-50.0); Mean Corpuscular Hemoglobin 27.1 pg (28.0-32.0); Mean Corpuscular Volume 82.1 fL (80.0-100.0); Monocytes # (auto) 1.3 10 ^3/uL (0-1.3); Monocytes % (auto) 5.4 % (0.0-12.0); Neutrophils % (auto) 89.9 % (37.0-80.0); Red Blood Cells 4.05 10^6/uL (4.5-5.90); White Blood Cell 24.5 10^3/uL (4.4-10.8)
[2021-08-24 11:26] LABS: Albumin 2.9 g/dL (3.4-5.0); Calcium 9.3 mg/dL (8.5-10.1); Potassium 3.6 mmol/L (3.5-5.1)
[2021-08-24 11:31] LABS: BUN/Creatinine Ratio 32.2; Bilirubin, Total 0.7 mg/dL (0.2-1.0); Total Protein 7.2 g/dL (6.4-8.2)
[2021-08-24] MEDS ORDERED: cefTRIAXone 1GM/50ML D5W 50 ML IV ONE (13:00)
[2021-08-24] MEDS ORDERED: SODIUM CHLORIDE 0.9% 1,000 ML IV ONE (16:45)
[2021-08-24] MEDS ORDERED: DEXTROSE (50%) 50ML SYRG IV PRN (17:15)
[2021-08-24] MEDS ORDERED: DOCUSATE SOD 100 MG CAP PO PRN (17:15)
[2021-08-24] MEDS ORDERED: ACETAMINOPHEN 500 MG TAB PO PRN (17:15)
[2021-08-24] MEDS ORDERED: NITROGLYCERIN 0.4 MG SL TAB SL PRN (17:15)
[2021-08-24] MEDS: MORPHINE SULFATE INJECTION 2 MG/ML SYRG IV PRN (19:01)
[2021-08-24] MEDS: PIPERACILLIN-TAZOB 2.25GM 50 ML IV SCH (19:22)
[2021-08-24] MEDS: SOD CHL 0.45% 1,000 ML IV SCH (19:23)
[2021-08-25] MEDS: ACCU-CHEK COMFORT CURVE STRIP VI SCH ×5 (00:33→21:56)
[2021-08-25] MEDS: InsuLIN REG 1unit/0.01ml Soln (100units/ml) SC SCH ×5 (00:35→21:59)
[2021-08-25] MEDS: ONDANSETRON HCL 4 MG/2 ML VIAL IV PRN ×3 (03:47→21:58)
[2021-08-25] MEDS: MORPHINE SULFATE INJECTION 2 MG/ML SYRG IV PRN ×5 (03:47→21:57)
[2021-08-25] MEDS: SOD CHL 0.45% 1,000 ML IV SCH ×2 (03:57→15:02)
[2021-08-25] MEDS: PIPERACILLIN-TAZOB 2.25GM 50 ML IV SCH ×4 (06:54→18:04)
[2021-08-25 07:14] LABS: Basophils # (auto) 0 10 ^3/uL (0-0.2); Basophils % (auto) 0.3 % (0.0-2.0); Eosinophils # (auto) 0 10 ^3/uL (0-0.8); Eosinophils % (auto) 0.3 % (0.0-7.0); Hematocrit 30.8 % (41.0-53.0); Hemoglobin 10.1 g/dL (13.5-17.5); Lymphocytes # (auto) 1.3 10 ^3/uL (0.4-5.4); Lymphocytes % (auto) 9.1 % (10.0-50.0); Mean Corpuscular Hgb Conc. 32.7 g/dL (32.0-36.0); Mean Corpuscular Volume 82.5 fL (80.0-100.0); Monocytes # (auto) 1.2 10 ^3/uL (0-1.3); Monocytes % (auto) 8.2 % (0.0-12.0); Neutrophils # (auto) 11.8 10 ^3/uL (1.6-8.6); Neutrophils % (auto) 82.1 % (37.0-80.0); Red Blood Cells 3.73 10^6/uL (4.5-5.90); Red Cell Distribution Width 15.1 % (11.8-14.3); White Blood Cell 14.3 10^3/uL (4.4-10.8)
[2021-08-25 07:32] LABS: Albumin 2.7 g/dL (3.4-5.0); Calcium 8.6 mg/dL (8.5-10.1); Potassium 3.1 mmol/L (3.5-5.1)
[2021-08-25 07:37] LABS: BUN/Creatinine Ratio 41.8; Bilirubin, Total 0.6 mg/dL (0.2-1.0)
[2021-08-25] MEDS: LEVOTHYROXINE SODIUM 100 MCG TAB PO SCH (08:36)
[2021-08-25] MEDS ORDERED: levoFLOXacin 500 MG TAB PO SCH (10:00)
[2021-08-25] MEDS: CLOPIDOGREL BISULFATE 75 MG TAB PO SCH (10:18)
[2021-08-25] MEDS ORDERED: MORPHINE SULFATE 4 MG/ML SYR/VIAL ONE (15:00)
[2021-08-25 19:20] VITALS: BP 129/64
[2021-08-26] MEDS: PIPERACILLIN-TAZOB 2.25GM 50 ML IV SCH ×2 (00:08→06:05)
[2021-08-26] MEDS: SOD CHL 0.45% 1,000 ML IV SCH ×3 (00:08→20:29)
[2021-08-26] MEDS: ACCU-CHEK COMFORT CURVE STRIP VI SCH ×4 (06:05→21:05)
[2021-08-26] MEDS: LEVOTHYROXINE SODIUM 100 MCG TAB PO SCH (06:05)
[2021-08-26] MEDS: InsuLIN REG 1unit/0.01ml Soln (100units/ml) SC SCH ×4 (06:06→21:20)
[2021-08-26 08:00] VITALS: BP 119/65
[2021-08-26 08:05] LABS: Urine Bacteria NONE SEEN /hpf (None Seen); Urine Blood Negative /uL (Negative); Urine Specific Gravity 1.015 (1.001-1.035); Urine WBC 164 /hpf (0 - 3)
[2021-08-26 08:26] LABS: Amphetamine Screen, Urine NEGATIVE (NEGATIVE); Barbiturate Scree,Urine NEGATIVE (NEGATIVE); Benzodiazephine Screen, Urine NEGATIVE (NEGATIVE); Cannabinoid Screen, Urine NEGATIVE (NEGATIVE); Cocaine Screen, Urine NEGATIVE (NEGATIVE); Opiate Scree,Urine POSITIVE (NEGATIVE); Phencyclidine Screen, Urine NEGATIVE (NEGATIVE)
[2021-08-26 09:00] VITALS: BP 119/65
[2021-08-26 09:01] LABS: Basophils # (auto) 0.1 10 ^3/uL (0-0.2); Eosinophils # (auto) 0.4 10 ^3/uL (0-0.8); Eosinophils % (auto) 3.6 % (0.0-7.0); Hematocrit 32.5 % (41.0-53.0); Hemoglobin 10.9 g/dL (13.5-17.5); Lymphocytes # (auto) 0.8 10 ^3/uL (0.4-5.4); Lymphocytes % (auto) 8.3 % (10.0-50.0); Mean Corpuscular Hemoglobin 27.3 pg (28.0-32.0); Mean Corpuscular Hgb Conc. 33.4 g/dL (32.0-36.0); Mean Corpuscular Volume 81.8 fL (80.0-100.0); Monocytes # (auto) 0.8 10 ^3/uL (0-1.3); Monocytes % (auto) 7.8 % (0.0-12.0); Neutrophils # (auto) 7.9 10 ^3/uL (1.6-8.6); Neutrophils % (auto) 79.3 % (37.0-80.0); Nucleated Red Blood Cells % 0.1 %; Red Blood Cells 3.98 10^6/uL (4.5-5.90); Red Cell Distribution Width 14.8 % (11.8-14.3)
[2021-08-26 09:52] LABS: BUN/Creatinine Ratio 28.9; Calcium 8.8 mg/dL (8.5-10.1); Magnesium 3.2 mg/dL (1.6-2.6)
[2021-08-26] MEDS: MORPHINE SULFATE INJECTION 2 MG/ML SYRG IV PRN ×3 (10:31→20:28)
[2021-08-26] MEDS: CLOPIDOGREL BISULFATE 75 MG TAB PO SCH (10:32)
[2021-08-26] MEDS: PANTOPRAZOLE 40 MG TAB PO SCH (10:32)
[2021-08-26] MEDS ORDERED: POTASSIUM EFFERVESENT TAB 25 MEQ PO ONE (11:45)
[2021-08-26] MEDS ORDERED: cefTRIAXone 1GM/50ML D5W 50 ML IV ONE (11:45)
[2021-08-26 12:46] VITALS: BP 138/64
[2021-08-26] MEDS ORDERED: LIDOCAINE 2% JELLY 11ml (GLYDO) UR ONE (15:00)
[2021-08-26 17:21] VITALS: BP 125/67
[2021-08-26] MEDS ORDERED: TAMSULOSIN HYDROCHLORIDE 0.4 MG CAP PO SCH (18:00)
[2021-08-26] MEDS ORDERED: INSULIN LANTUS (GLARGINE) 1 /0.01ml (100units/ml) SC SCH (22:00)
[2021-08-27] MEDS: SOD CHL 0.45% 1,000 ML IV SCH (04:50)
[2021-08-27] MEDS: MORPHINE SULFATE INJECTION 2 MG/ML SYRG IV PRN ×3 (04:51→14:26)
[2021-08-27 05:45] VITALS: BP 117/58
[2021-08-27] MEDS: LEVOTHYROXINE SODIUM 100 MCG TAB PO SCH (07:38)
[2021-08-27] MEDS: ACCU-CHEK COMFORT CURVE STRIP VI SCH ×2 (07:38→11:40)
[2021-08-27] MEDS: InsuLIN REG 1unit/0.01ml Soln (100units/ml) SC SCH ×2 (07:39→11:41)
[2021-08-27 09:00] VITALS: BP 121/61
[2021-08-27] MEDS ORDERED: cefTRIAXone 1GM/50ML D5W 50 ML IV SCH (09:00)
[2021-08-27 09:39] LABS: Basophils # (auto) 0.1 10 ^3/uL (0-0.2); Basophils % (auto) 0.7 % (0.0-2.0); Eosinophils # (auto) 0.5 10 ^3/uL (0-0.8); Eosinophils % (auto) 5.1 % (0.0-7.0); Hematocrit 29.1 % (41.0-53.0); Hemoglobin 9.9 g/dL (13.5-17.5); Lymphocytes # (auto) 0.9 10 ^3/uL (0.4-5.4); Lymphocytes % (auto) 9.6 % (10.0-50.0); Mean Corpuscular Hemoglobin 27.7 pg (28.0-32.0); Mean Corpuscular Volume 81.7 fL (80.0-100.0); Monocytes # (auto) 0.9 10 ^3/uL (0-1.3); Monocytes % (auto) 9.4 % (0.0-12.0); Neutrophils # (auto) 7.2 10 ^3/uL (1.6-8.6); Neutrophils % (auto) 75.2 % (37.0-80.0); Red Blood Cells 3.56 10^6/uL (4.5-5.90); Red Cell Distribution Width 14.1 % (11.8-14.3); White Blood Cell 9.6 10^3/uL (4.4-10.8)
[2021-08-27] MEDS: PANTOPRAZOLE 40 MG TAB PO SCH (09:54)
[2021-08-27] MEDS: CLOPIDOGREL BISULFATE 75 MG TAB PO SCH (09:54)
[2021-08-27 11:03] LABS: Calcium 8.6 mg/dL (8.5-10.1); Potassium 3.1 mmol/L (3.5-5.1)
[2021-08-27 11:05] LABS: BUN/Creatinine Ratio 27.6
[2021-08-27] MEDS ORDERED: LEVO500T31 PO (12:45)
[2021-08-27] MEDS ORDERED: POTASSIUM CHL 20 Meq TABLET PO ONE (12:45)
[2021-08-27 13:00] VITALS: BP 118/59
[2021-08-27 13:43] VITALS: BP 118/59
[2021-08-27 14:26] VITALS: BP 118/59
== END 2021-08-27 14:45 | disposition home health service (06) | DRG 871 ==
LOC: EDBD 09:19 → ER 09:19 → TELE 17:02 → TELE-CENTR 08-25 19:20
PROVIDERS: ADMIT Nurse Practitioner Acute Care; ATTEND Internal Medicine
DX: A41.9 Sepsis, unspecified organism (principal); J18.9 Pneumonia, unspecified organism; N17.0 Acute kidney failure with tubular necrosis; E44.0 Moderate protein-calorie malnutrition; N13.8 Other obstructive and reflux uropathy; N39.0 Urinary tract infection, site not specified; N18.9 Chronic kidney disease, unspecified; Z68.23 Body mass index [BMI] 23.0-23.9, adult; D64.9 Anemia, unspecified; E03.9 Hypothyroidism, unspecified; E11.22 Type 2 diabetes mellitus with diabetic chronic kidney disease; E11.51 Type 2 diabetes mellitus with diabetic peripheral angiopathy without gangrene; E11.65 Type 2 diabetes mellitus with hyperglycemia; E78.5 Hyperlipidemia, unspecified; E87.6 Hypokalemia; F17.210 Nicotine dependence, cigarettes, uncomplicated; I12.9 Hypertensive chronic kidney disease with stage 1 through stage 4 chronic kidney disease, or unspecified chronic kidney disease; I25.10 Atherosclerotic heart disease of native coronary artery without angina pectoris; N35.919 Unspecified urethral stricture, male, unspecified site; F41.9 Anxiety disorder, unspecified; Z20.822 Contact with and (suspected) exposure to COVID-19; N40.1 Benign prostatic hyperplasia with lower urinary tract symptoms; R65.20 Severe sepsis without septic shock; Z79.02 Long term (current) use of antithrombotics/antiplatelets; Z79.4 Long term (current) use of insulin; Z79.899 Other long term (current) drug therapy; Z89.511 Acquired absence of right leg below knee; Z89.512 Acquired absence of left leg below knee
CPT/HCPCS: 36415; 71045; 74176; 76775; 80048; 80053; 80307; 81001; 82728; 82962; 83036; 83605; 83735; 84154; 84484; 85025; 86141; 87040; 87086; 87426; 93005; 96365; G0378; J0696; J1815; J2405; J2543

== ENCOUNTER 2022-05-20 04:25 | Inpatient (IN) | payer OTHER ==
[~2022-05-20] VITALS: Ht 167.6 cm; Wt 58.3 kg
[2022-05-20 05:51] LABS: Basophils # (auto) 0.2 10 ^3/uL (0-0.2); Basophils % (auto) 0.8 % (0.0-2.0); Eosinophils # (auto) 0 10 ^3/uL (0-0.8); Eosinophils % (auto) 0.1 % (0.0-7.0); Hematocrit 40.2 % (41.0-53.0); Hemoglobin 13.8 g/dL (13.5-17.5); Lymphocytes # (auto) 1.6 10 ^3/uL (0.4-5.4); Lymphocytes % (auto) 7.7 % (10.0-50.0); Mean Corpuscular Hemoglobin 28.4 pg (28.0-32.0); Mean Corpuscular Hgb Conc. 34.2 g/dL (32.0-36.0); Monocytes # (auto) 0.9 10 ^3/uL (0-1.3); Monocytes % (auto) 4.5 % (0.0-12.0); Neutrophils % (auto) 86.9 % (37.0-80.0); Red Blood Cells 4.84 10^6/uL (4.5-5.90); Red Cell Distribution Width 14.3 % (11.8-14.3); White Blood Cell 20.8 10^3/uL (4.4-10.8)
[2022-05-20 06:04] LABS: Potassium 3.9 mmol/L (3.5-5.1)
[2022-05-20 06:12] LABS: Albumin 3.9 g/dL (3.4-5.0); BUN/Creatinine Ratio 15.2; Bilirubin, Total 1.1 mg/dL (0.2-1.0); Calcium 11.5 mg/dL (8.5-10.1); Magnesium 2.4 mg/dL (1.6-2.6)
[2022-05-20 06:18] LABS: INR 0.97 (0.9-1.15); Partial Thromboplastin Time 22.8 sec (24.6-33.4)
[2022-05-20] MEDS ORDERED: ONDANSETRON HCL 4 MG/2 ML VIAL IV ONE (06:45)
[2022-05-20] MEDS ORDERED: MORPHINE SULFATE 4 MG/ML SYR/VIAL IV ONE (06:45)
[2022-05-20] MEDS ORDERED: ENOXAPARIN SOD 60 MG/0.6 ML SYRINGE SC ONE (07:00)
[2022-05-20] MEDS ORDERED: SODIUM CHLORIDE 0.9% 1,000 ML IV ONE ×2 (08:00)
[2022-05-20] MEDS ORDERED: HEPARIN SODIUM (PORCINE) 5000 UNITS/ML 1ML VIAL IV ONE (09:00)
[2022-05-20] MEDS ORDERED: VANCOMYCIN PER PHARMACY 0 MG IV SCH (09:00)
[2022-05-20] MEDS ORDERED: NITROGLYCERIN 0.4 MG SL TAB SL PRN ×2 (09:00)
[2022-05-20] MEDS ORDERED: HEPARIN DRIP/D5W 100UNITS/ML 250 ML IV SCH (09:00)
[2022-05-20] MEDS: PIPERACILLIN-TAZOB 3.375GM 100 ML IV SCH ×2 (09:52→21:18)
[2022-05-20] MEDS: CARVEDILOL 3.125 MG TAB PO SCH ×2 (10:00→22:23)
[2022-05-20] MEDS: SODIUM CHLORIDE 0.9% 1,000 ML IV SCH ×3 (11:03→22:16)
[2022-05-20 11:24] LABS: Phosphorus 5.1 mg/dL (2.5-4.90); Uric Acid 8.9 mg/dL (3.5-7.2)
[2022-05-20] MEDS ORDERED: VANCOMYCIN 1GM/250ML 250 ML IV ONE (13:00)
[2022-05-20] MEDS: ONDANSETRON HCL 4 MG/2 ML VIAL IV PRN ×2 (13:15→19:54)
[2022-05-20] MEDS: MORPHINE SULFATE INJ 2 MG/ml SYRG IV PRN ×3 (13:15→19:54)
[2022-05-20 15:02] LABS: Cholesterol 323 mg/dL (< 200); Triglycerides 148 mg/dL (< 150)
[2022-05-20 15:05] LABS: HDL Cholesterol 59 mg/dL (40-59); LDL Cholesterol 239 mg/dL (< 100)
[2022-05-20 15:48] LABS: INR 1.04 (0.9-1.15); Partial Thromboplastin Time 35.3 sec (24.6-33.4)
[2022-05-20] MEDS: ACCU-CHEK COMFORT CURVE STRIP VI SCH ×2 (17:00→22:23)
[2022-05-20] MEDS: CALCIUM ACETATE 667 MG CAP PO SCH (18:28)
[2022-05-20 18:35] LABS: INR 1.02 (0.9-1.15); Partial Thromboplastin Time 36.7 sec (24.6-33.4)
[2022-05-20] MEDS: HEPARIN DRIP/D5W 100UNITS/ML 250 ML IV SCH (20:26)
[2022-05-20 22:00] VITALS: BP 153/84
[2022-05-20] MEDS: ATORVASTATIN 20 MG TAB PO SCH (22:23)
[2022-05-20] MEDS: InsuLIN REG 1unit/0.01ml Soln (100units/ml) SC SCH (22:26)
[2022-05-21 00:53] LABS: INR 1.03 (0.9-1.15); Partial Thromboplastin Time 48.1 sec (24.6-33.4)
[2022-05-21] MEDS: HEPARIN DRIP/D5W 100UNITS/ML 250 ML IV SCH (01:11)
[2022-05-21] MEDS ORDERED: HEPARIN DRIP/D5W 100UNITS/ML 250 ML IV SCH (02:00)
[2022-05-21 05:00] VITALS: BP 150/71
[2022-05-21 05:06] LABS: Urine Bacteria FEW /hpf (None Seen); Urine Blood Negative /uL (Negative); Urine Hyaline Cast FEW /lpf (0 - 2); Urine Mucus FEW (None Seen); Urine Specific Gravity 1.019 (1.001-1.035); Urine WBC 34 /hpf (0 - 3)
[2022-05-21 05:22] LABS: Protein, Urine 50.8 mg/dL (0.0-11.9)
[2022-05-21] MEDS: ACCU-CHEK COMFORT CURVE STRIP VI SCH ×4 (06:17→21:25)
[2022-05-21] MEDS: InsuLIN REG 1unit/0.01ml Soln (100units/ml) SC SCH ×4 (06:19→21:26)
[2022-05-21 06:29] LABS: Basophils # (auto) 0.1 10 ^3/uL (0-0.2); Basophils % (auto) 0.7 % (0.0-2.0); Eosinophils # (auto) 0 10 ^3/uL (0-0.8); Eosinophils % (auto) 0.1 % (0.0-7.0); Hematocrit 34.1 % (41.0-53.0); Hemoglobin 11.3 g/dL (13.5-17.5); Lymphocytes # (auto) 1.2 10 ^3/uL (0.4-5.4); Lymphocytes % (auto) 5.7 % (10.0-50.0); Mean Corpuscular Hgb Conc. 33.1 g/dL (32.0-36.0); Mean Corpuscular Volume 84.6 fL (80.0-100.0); Monocytes # (auto) 1.4 10 ^3/uL (0-1.3); Monocytes % (auto) 6.4 % (0.0-12.0); Neutrophils % (auto) 87.1 % (37.0-80.0); Red Blood Cells 4.03 10^6/uL (4.5-5.90); Red Cell Distribution Width 14.5 % (11.8-14.3); White Blood Cell 21.8 10^3/uL (4.4-10.8)
[2022-05-21] MEDS: SODIUM CHLORIDE 0.9% 1,000 ML IV SCH ×2 (06:34→07:34)
[2022-05-21 06:42] LABS: Potassium 3.6 mmol/L (3.5-5.1)
[2022-05-21 06:48] LABS: Albumin 3.1 g/dL (3.4-5.0); BUN/Creatinine Ratio 14.3; Bilirubin, Direct 0.2 mg/dL (0-0.2); Bilirubin, Total 0.8 mg/dL (0.2-1.0); Phosphorus 5.4 mg/dL (2.5-4.90); Total Protein 6.2 g/dL (6.4-8.2)
[2022-05-21 06:55] LABS: INR 1.04 (0.9-1.15); Partial Thromboplastin Time 64.4 sec (24.6-33.4)
[2022-05-21] MEDS: CALCIUM ACETATE 667 MG CAP PO SCH ×3 (08:02→17:29)
[2022-05-21] MEDS: MORPHINE SULFATE INJ 2 MG/ml SYRG IV PRN (08:03)
[2022-05-21 09:00] VITALS: BP 168/88
[2022-05-21] MEDS: CARVEDILOL 3.125 MG TAB PO SCH ×2 (09:51→21:25)
[2022-05-21] MEDS: PIPERACILLIN-TAZOB 3.375GM 100 ML IV SCH (09:51)
[2022-05-21] MEDS: HYDROcodone-ACET 5/325MG TAB PO PRN ×3 (12:00→23:22)
[2022-05-21] MEDS ORDERED: amLODIPine BESYLATE 5 MG TAB PO ONE (12:15)
[2022-05-21] MEDS ORDERED: hydrALAZINE HCL 20 MG/ML VL IV PRN (12:15)
[2022-05-21 13:00] VITALS: BP 175/79
[2022-05-21] MEDS: LINEZOLID 600MG/300ML 300 ML IV SCH (13:41)
[2022-05-21] MEDS: PIPERACILLIN-TAZOB 2.25GM 50 ML IV SCH ×2 (16:49→23:25)
[2022-05-21 17:00] VITALS: BP 155/83
[2022-05-21] MEDS: ONDANSETRON HCL 4 MG/2 ML VIAL IV PRN (17:02)
[2022-05-21] MEDS: ATORVASTATIN 20 MG TAB PO SCH (21:25)
[2022-05-21 22:00] VITALS: BP 140/67
[2022-05-22] MEDS: LINEZOLID 600MG/300ML 300 ML IV SCH ×2 (01:28→15:40)
[2022-05-22 05:00] VITALS: BP 144/69
[2022-05-22] MEDS: PIPERACILLIN-TAZOB 2.25GM 50 ML IV SCH ×4 (05:20→23:31)
[2022-05-22 06:11] LABS: Albumin 2.8 g/dL (3.4-5.0); Calcium 8.5 mg/dL (8.5-10.1); Potassium 3.5 mmol/L (3.5-5.1)
[2022-05-22 06:15] LABS: BUN/Creatinine Ratio 17.2; Bilirubin, Total 1.1 mg/dL (0.2-1.0); Total Protein 5.8 g/dL (6.4-8.2)
[2022-05-22] MEDS: ACCU-CHEK COMFORT CURVE STRIP VI SCH ×4 (06:21→22:04)
[2022-05-22] MEDS: INSULIN LANTUS (GLARGINE) 1 /0.01ml (100units/ml) SC SCH (06:22)
[2022-05-22 06:24] LABS: Basophils # (auto) 0 10 ^3/uL (0-0.2); Basophils % (auto) 0.3 % (0.0-2.0); Eosinophils # (auto) 0.1 10 ^3/uL (0-0.8); Eosinophils % (auto) 0.6 % (0.0-7.0); Hematocrit 31.9 % (41.0-53.0); Hemoglobin 10.7 g/dL (13.5-17.5); Lymphocytes # (auto) 1.1 10 ^3/uL (0.4-5.4); Lymphocytes % (auto) 7.3 % (10.0-50.0); Mean Corpuscular Hemoglobin 28.4 pg (28.0-32.0); Mean Corpuscular Hgb Conc. 33.5 g/dL (32.0-36.0); Mean Corpuscular Volume 84.9 fL (80.0-100.0); Monocytes # (auto) 1.1 10 ^3/uL (0-1.3); Monocytes % (auto) 7.5 % (0.0-12.0); Neutrophils # (auto) 12.9 10 ^3/uL (1.6-8.6); Neutrophils % (auto) 84.3 % (37.0-80.0); Red Blood Cells 3.76 10^6/uL (4.5-5.90); Red Cell Distribution Width 13.9 % (11.8-14.3); White Blood Cell 15.3 10^3/uL (4.4-10.8)
[2022-05-22] MEDS: InsuLIN REG 1unit/0.01ml Soln (100units/ml) SC SCH ×4 (06:24→22:00)
[2022-05-22 07:30] VITALS: BP 162/76
[2022-05-22 09:00] VITALS: BP 162/76
[2022-05-22] MEDS: CALCIUM ACETATE 667 MG CAP PO SCH ×3 (09:11→17:29)
[2022-05-22] MEDS: CARVEDILOL 3.125 MG TAB PO SCH ×2 (09:12→20:47)
[2022-05-22] MEDS: CLOPIDOGREL BISULFATE 75 MG TAB PO SCH (09:12)
[2022-05-22] MEDS: amLODIPine BESYLATE 5 MG TAB PO SCH (09:12)
[2022-05-22] MEDS: HYDROcodone-ACET 5/325MG TAB PO PRN ×2 (09:15→23:31)
[2022-05-22 11:44] VITALS: BP 113/59
[2022-05-22 17:00] VITALS: BP 113/62
[2022-05-22] MEDS: ATORVASTATIN 20 MG TAB PO SCH (20:47)
[2022-05-22] MEDS: MORPHINE SULFATE INJ 2 MG/ml SYRG IV PRN (20:48)
[2022-05-22 21:00] VITALS: BP 118/63
[2022-05-23] MEDS: LINEZOLID 600MG/300ML 300 ML IV SCH ×2 (01:30→14:01)
[2022-05-23 05:00] VITALS: BP 126/74
[2022-05-23 06:04] LABS: Basophils # (auto) 0.1 10 ^3/uL (0-0.2); Basophils % (auto) 0.8 % (0.0-2.0); Eosinophils # (auto) 0.2 10 ^3/uL (0-0.8); Eosinophils % (auto) 2.7 % (0.0-7.0); Hematocrit 31.1 % (41.0-53.0); Hemoglobin 10.6 g/dL (13.5-17.5); Lymphocytes # (auto) 1.5 10 ^3/uL (0.4-5.4); Lymphocytes % (auto) 17.2 % (10.0-50.0); Mean Corpuscular Hemoglobin 28.9 pg (28.0-32.0); Monocytes # (auto) 0.9 10 ^3/uL (0-1.3); Neutrophils # (auto) 6.1 10 ^3/uL (1.6-8.6); Neutrophils % (auto) 69.3 % (37.0-80.0); Red Blood Cells 3.66 10^6/uL (4.5-5.90); Red Cell Distribution Width 13.6 % (11.8-14.3); White Blood Cell 8.8 10^3/uL (4.4-10.8)
[2022-05-23] MEDS: PIPERACILLIN-TAZOB 2.25GM 50 ML IV SCH ×4 (06:13→22:57)
[2022-05-23] MEDS: ACCU-CHEK COMFORT CURVE STRIP VI SCH ×4 (06:13→21:50)
[2022-05-23] MEDS: INSULIN LANTUS (GLARGINE) 1 /0.01ml (100units/ml) SC SCH (06:38)
[2022-05-23] MEDS: InsuLIN REG 1unit/0.01ml Soln (100units/ml) SC SCH ×4 (06:39→22:00)
[2022-05-23 06:43] LABS: Potassium 3.2 mmol/L (3.5-5.1)
[2022-05-23 06:47] LABS: BUN/Creatinine Ratio 17.1; Calcium 8.5 mg/dL (8.5-10.1)
[2022-05-23 07:41] VITALS: BP 143/76
[2022-05-23] MEDS: CLOPIDOGREL BISULFATE 75 MG TAB PO SCH (08:41)
[2022-05-23] MEDS: CARVEDILOL 3.125 MG TAB PO SCH ×2 (08:42→21:49)
[2022-05-23] MEDS: CALCIUM ACETATE 667 MG CAP PO SCH ×3 (08:42→16:59)
[2022-05-23] MEDS: amLODIPine BESYLATE 5 MG TAB PO SCH (08:43)
[2022-05-23] MEDS: HYDROcodone-ACET 5/325MG TAB PO PRN ×3 (08:43→18:22)
[2022-05-23] MEDS ORDERED: POTASSIUM EFFERVESENT TAB 25 MEQ PO ONE (09:00)
[2022-05-23 11:54] VITALS: BP 130/61
[2022-05-23 16:19] VITALS: BP 120/69
[2022-05-23] MEDS: ATORVASTATIN 20 MG TAB PO SCH (21:49)
[2022-05-23 22:00] VITALS: BP 109/60
[2022-05-23] MEDS: MORPHINE SULFATE INJ 2 MG/ml SYRG IV PRN (23:10)
[2022-05-24] MEDS: LINEZOLID 600MG/300ML 300 ML IV SCH (01:45)
[2022-05-24 04:44] VITALS: BP 125/65
[2022-05-24] MEDS: PIPERACILLIN-TAZOB 2.25GM 50 ML IV SCH ×2 (04:45→11:00)
[2022-05-24] MEDS: ACCU-CHEK COMFORT CURVE STRIP VI SCH ×2 (06:29→11:06)
[2022-05-24] MEDS: InsuLIN REG 1unit/0.01ml Soln (100units/ml) SC SCH ×2 (06:32→11:06)
[2022-05-24] MEDS: INSULIN LANTUS (GLARGINE) 1 /0.01ml (100units/ml) SC SCH (06:33)
[2022-05-24] MEDS: MORPHINE SULFATE INJ 2 MG/ml SYRG IV PRN (06:47)
[2022-05-24 07:35] VITALS: BP 117/60
[2022-05-24 07:38] VITALS: BP 117/60
[2022-05-24] MEDS: amLODIPine BESYLATE 5 MG TAB PO SCH (08:55)
[2022-05-24] MEDS: CLOPIDOGREL BISULFATE 75 MG TAB PO SCH (08:55)
[2022-05-24] MEDS: CALCIUM ACETATE 667 MG CAP PO SCH ×2 (08:55→11:06)
[2022-05-24] MEDS: CARVEDILOL 3.125 MG TAB PO SCH (08:56)
[2022-05-24] MEDS ORDERED: CAR3125T PO (10:57)
[2022-05-24] MEDS ORDERED: AML5T PO (10:57)
[2022-05-24] MEDS ORDERED: LINE1TAB6 PO (10:57)
[2022-05-24 11:19] VITALS: BP 117/60
[2022-05-24 12:11] VITALS: BP 125/70
== END 2022-05-24 12:27 | disposition home or self-care (01) | DRG 871 ==
LOC: EDBD 04:25 → ER 04:25 → TELE 08:50 → TELE-CENTR 19:58
PROVIDERS: ADMIT Family Medicine; ATTEND Internal Medicine Pulmonary Disease
DX: A41.9 Sepsis, unspecified organism (principal); I21.4 Non-ST elevation (NSTEMI) myocardial infarction; N17.0 Acute kidney failure with tubular necrosis; J96.01 Acute respiratory failure with hypoxia; J18.9 Pneumonia, unspecified organism; R17 Unspecified jaundice; N39.0 Urinary tract infection, site not specified; J44.0 Chronic obstructive pulmonary disease with (acute) lower respiratory infection; D70.9 Neutropenia, unspecified; E11.22 Type 2 diabetes mellitus with diabetic chronic kidney disease; E11.51 Type 2 diabetes mellitus with diabetic peripheral angiopathy without gangrene; E78.5 Hyperlipidemia, unspecified; E86.1 Hypovolemia; F17.210 Nicotine dependence, cigarettes, uncomplicated; I12.9 Hypertensive chronic kidney disease with stage 1 through stage 4 chronic kidney disease, or unspecified chronic kidney disease; I25.10 Atherosclerotic heart disease of native coronary artery without angina pectoris; K52.9 Noninfective gastroenteritis and colitis, unspecified; N18.32 Chronic kidney disease, stage 3b; F41.9 Anxiety disorder, unspecified; Z20.822 Contact with and (suspected) exposure to COVID-19; R05.3 Chronic cough; R00.0 Tachycardia, unspecified; R74.01 Elevation of levels of liver transaminase levels; E11.65 Type 2 diabetes mellitus with hyperglycemia; N20.0 Calculus of kidney; E86.0 Dehydration; E11.42 Type 2 diabetes mellitus with diabetic polyneuropathy; D63.1 Anemia in chronic kidney disease; E87.6 Hypokalemia; Z79.02 Long term (current) use of antithrombotics/antiplatelets; Z87.440 Personal history of urinary (tract) infections; Z89.511 Acquired absence of right leg below knee; Z89.512 Acquired absence of left leg below knee; Z89.611 Acquired absence of right leg above knee; Z89.612 Acquired absence of left leg above knee; Z79.4 Long term (current) use of insulin
CPT/HCPCS: 36415; 70450; 71045; 71250; 74176; 80048; 80053; 80061; 80202; 81001; 82248; 82306; 82570; 82962; 83036; 83735; 83970; 84100; 84156; 84443; 84484; 84550; 85025; 85610; 85730; 87040; 87086; 93005; 93306; 96361; 96365; 96367; 96372; 96375; 96376; G0378; J1815; J2405; J2543